=== PATIENT | female | born 2005 | race Caucasian/White ===

== ENCOUNTER 2023-05-22 20:41 | Emergency (ER) | payer OTHER, MEDICAID, SELFPAY ==
[2023-05-22 20:48] VITALS: BP 154/99; PULSE 72; RESP 17; TEMP 36.6; O2SAT 95; BMI 31.6
[2023-05-22] MEDS: methylPREDNISolone sod succ 125 mg/2 mL INJ IVP (20:51)
[2023-05-22] MEDS: famotidine 20 mg/2 mL INJ 40 MG IVP (20:52)
[2023-05-22] MEDS: diphenhydrAMINE 50 mg/mL SDV 1mL IVP (20:52)
--- NOTE | 2023-05-22 21:00 | W.ED.ALLEREA ---
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 States this happened 45 minutes ago states that her whole body feels like that its itchy in nature. She has no shortness of breath denies any previous allergic reactions denies any worsening improving factors. Associated symptoms: Deny abdominal pain, nausea or vomiting Review of Systems Const: Denies: fever(s), chills, body aches or change in appetite ENMT: Denies: throat pain or dental pain Card: Denies: chest pain Resp: Denies: dyspnea GI: Denies: abdominal pain, nausea, vomiting or diarrhea Musc: Denies: neck pain or back pain Skin/Breast: Reports: rash and pruritus Neuro: Denies: headache(s) All/Imm: Reports: urticaria Physical Exam Const: COMMON NORMALS: patient oriented x3 HENMT: COMMON NORMALS: normocephalic and atraumatic HEAD & SCALP: normocephalic and atraumatic Neck/C-Spine: COMMON NORMALS: full ROM and supple Chest: COMMONS NORMALS: normal inspection of the chest Resp: COMMON NORMALS: normal respiratory effort Cardio: COMMON NORMALS: regular rate, regular rhythm and No murmurs present (Cardio) RATE: regular rate RHYTHM: regular rhythm Extremity: COMMON NORMALS: full ROM Neuro: COMMON NORMALS: patient oriented x3, moves all extremities and no focal motor deficits Psych: COMMON NORMALS: mental status grossly normal, Normal thought process present and cooperative THOUGHT PROCESS: Normal thought process present Skin: COMMON NORMALS: no wounds NARRATIVE SKIN EXAM: Circular rash to back and arms Course Vital Signs: Vital signs: Vital Signs Temperature 98 F 05/22/23 20:48 Pulse Rate 104 H 05/22/23 21:03 Respiratory Rate 15 05/22/23 21:03 Blood Pressure 134/98 05/22/23 21:03 Pulse Oximetry 100 05/22/23 21:03 Oxygen Delivery Me thod Room Air 05/22/23 21:03 MDM - Allergic Reaction Medical Decision Making Patient presents here with urticarial rash likely from a allergic reaction she is to follow-up with PCP patient's symptoms have improved greatly here after Benadryl Pepcid and Solu-Medrol we will place her on 5 days of prednisone she is to return if worsening she understands agrees to plan. Medical Records I reviewed the patient's medical records. No radiology studies performed this visit Discharge Plan Discharge Patient Disposition: Home Clinical Impression: Allergic reaction Qualifiers: Encounter type: initial encounter Qualified Code(s): T78.40XA - Allergy, unspecified, initial encounter Prescriptions: New prednisone 50 mg tablet 50 mg PO DAILY Qty: 5 0RF Discharge Orders: Discharge ED (Routine); Ordered 05/22/23 Ordered By: Lilian Cruz Discharge Diet: Advance as tolerated Discharge Activity: Resume usual activity Patient Instructions: General Allergic Reaction (ED) Coding Level of Care Code ED Granulator Operator for Adrián Pardo
[2023-05-22 21:03] VITALS: BP 134/98; PULSE 104; RESP 15; O2SAT 100
[2023-05-22 22:19] VITALS: BP 134/98; PULSE 104; RESP 15; O2SAT 100
== END 2023-05-22 22:20 | disposition home or self-care (01) ==
PROVIDERS: Emergency Provider Emergency Medicine
DX: T78.49XA Other allergy, initial encounter (principal); X58.XXXA Exposure to other specified factors, initial encounter; Y99.0 Civilian activity done for income or pay
CPT/HCPCS: 96374; 96375; 99284; J1200; J2930; J3490

== ENCOUNTER → 2023-07-05 10:00 | Outpatient (BNVA) | payer BC, MEDICAID, SELFPAY | PROVIDERS: Visit Provider Obstetrics & Gynecology | DX: Z00.00 Encounter for general adult medical examination without abnormal findings (principal) | CPT/HCPCS: 84146; 84443; 85025 ==

== ENCOUNTER 2023-07-09 10:25 | Emergency (ER) | payer BC, MEDICAID, SELFPAY ==
[2023-07-09 10:32] VITALS: BP 143/87; PULSE 72; RESP 12; TEMP 36.6; O2SAT 98; BMI 31.6
--- NOTE | 2023-07-09 10:37 | XRR_ITS ---
PROCEDURE INFORMATION: Exam: XR Left Elbow Exam date and time: 07/09/2023 10:38 AM Age: 17 years old Clinical indication: Injury or trauma; Fall; Blunt trauma (contusions or hematomas); Elbow; Left TECHNIQUE: Imaging protocol: Radiologic exam of the left elbow. Views: 3 or more views. COMPARISON: No relevant prior studies available. FINDINGS: Bones/joints: There is an apparent lucency along the posterior cortex of radial head, seen only in oblique radiograph. Soft tissues: Normal. No significant joint effusion. XR/XR elbow LT min 3V* [id number] IMPRESSION: Apparent cortical lucency along the posterior cortex of radial head seen only in oblique radiograph, likely artifactual. There is no significant joint effusion identified. Follow-up radiographs recommended. Follow-up with CT scan as clinically indicated.
--- NOTE | 2023-07-09 11:08 | W.ED.EXTPRO ---
HPI - Extremity Problem General: Chief complaint: Extremity Injury, Upper Stated complaint: left arm pain, fall Time Seen by Provider: 07/09/23 10:28 Source: patient Mode of arrival: ambulatory History of Present Illness: 17-year-old female presents emergency room after a fall last night when she was leaving work she has an abrasion on her left elbow she has difficulty with flexion extension since then. No other injuries at the time. MD Complaint: joint pain Onset (ago): hour(s) Pain Consistency: constant Location: left and elbow Quality: sharp Radiation: none Relieving factors: immobilization Exacerbating factors: range of motion and palpation Associated symptoms: Deny arthralgias, chest pain, fever(s), myalgias, rash or short of breath Review of Systems Const: Denies: fever(s) or chills Card: Denies: chest pain Resp: Denies: dyspnea GI: Denies: abdominal pain : Denies: dysuria, urinary frequency or urinary urgency Musc: Denies: neck pain or back pain Skin/Breast: Denies: rash PFSH ED PFSH: Family History Grandmother Heart disease paternal Hypertension maternal Thyroid disease maternal Diabetes maternal Grandfather Heart disease maternal Mother Hypertension Thyroid disease Diabetes Father Thyroid disease Physical Exam Const: COMMON NORMALS: no acute distress GENERAL APPEARANCE: cooperative and comfortable ORIENTATION/CONSCIOUSNESS: Yes awake, Yes oriented to person, Yes oriented to place and Yes oriented to time HENMT: COMMON NORMALS: normocephalic, atraumatic and hearing grossly normal bilaterally HEAD & SCALP: normocephalic and atraumatic Resp: COMMON NORMALS: normal respiratory effort, No retractions, No use of accessory muscles and clear to auscultation bilaterally AUSCULTATION: clear to auscultation bilaterally Cardio: COMMON NORMALS: regular rate, regular rhythm and No murmurs present (Cardio) RATE: regular rate RHYTHM: regular rhythm GI: COMMON NORMALS: Soft to palpation and No hepatosplenomegaly present AUSCULTATION: Yes normoactive bowel sounds PALPATION: Yes Soft to palpation, No Tenderness to palpation present (GI), No Guarding due to palpation present (GI) and Yes No hepatosplenomegaly present Extremity: COMMON NORMALS: normal to inspection, capillary refill normal, no clubbing, cyanosis or edema, no calf tenderness and no pedal edema Neuro: SENSORIUM/ORIENTATION: Yes oriented to person, Yes oriented to place and Yes oriented to time Skin: COMMON NORMALS: no rashes or lesions noted GENERAL SKIN EXAM: no rashes or lesions noted Course Vital Signs: Vital signs: Vital Signs Temperature 97.9 F 07/09/23 11:16 Pulse Rate 72 07/09/23 11:16 Respiratory Rate 12 07/09/23 11:16 Blood Pressure 143/87 07/09/23 11:16 Pulse Oximetry 98 07/09/23 11:16 Oxygen Delivery Me thod Room Air 07/09/23 10:32 MDM - Extremity (Nontraumatic) Medical Decision Making Patient can tolerate some flexion extension of the elbow but as she nears terminal range of motion has more discomfort. X-ray questionable radial head fracture. Will immobilize and refer to Ortho for follow-up. Medical Records I reviewed the patient's medical records. Lab Data I reviewed the patient's lab results. Radiology Impressions Elbow X-Ray 07/09/23 10:37 IMPRESSION: Apparent cortical lucency along the posterior cortex of radial head seen only in oblique radiograph, likely artifactual. There is no significant joint effusion identified. Follow-up radiographs recommended. Follow-up with CT scan as clinically indicated. All radiology interpretation(s) finalized by discharge Discharge Plan Discharge Patient Disposition: Home Clinical Impression: Fracture of head of radius Condition: Stable Prescriptions: No Action No Known Home Medications Discharge Orders: Discharge ED (Routine); Ordered 07/09/23 Ordered By: Jason Walker Discharge Diet: Advance as tolerated and Usual diet Discharge Activity: Increase activity as tolerated Patient Instructions: Opioid Safety, Pain Management Activity Restrictions/Additional Instructions: Thank you for choosing [facility] for your healthcare needs today. Please realize this is an emergency room and that we are providing you with a medical screening exam and this may not be complete and all inclusive of all the testing and or work up that you may need to determine your ailment or severity of your illness. It is very important that you follow up as instructed or that you return to the Emergency Department should you have concerns or if your condition changes or worsens in any way. X-ray showed a questionable radial head fracture. Recommend that you keep your left arm in a sling until you follow-up with orthopedics social work case manager will make arrangements for follow-up with orthopedics Tylenol or ice as needed for discomfort Stand Alone Forms: Work/School Release Coding Level of Care Code ED Lens Gauger for Adrián Pardo
[2023-07-09 11:16] VITALS: BP 143/87; PULSE 72; RESP 12; TEMP 36.6; O2SAT 98
--- NOTE | 2023-07-12 11:29 | DCPLANNER ---
Message sent to Orthopedics for a follow up appointment for a possible radial head fracture
== END 2023-07-09 11:17 | disposition home or self-care (01) ==
PROVIDERS: Emergency Provider Family Medicine
DX: S52.122A Displaced fracture of head of left radius, initial encounter for closed fracture (principal); S50.312A Abrasion of left elbow, initial encounter; W19.XXXA Unspecified fall, initial encounter
CPT/HCPCS: 73080; 99281

== ENCOUNTER 2023-08-03 13:02 | Emergency (ER) | payer BC, MEDICAID, SELFPAY ==
[2023-08-03] VITALS (13 sets, daily range): BP systolic 113–129; BP diastolic 73–92; PULSE 67–86; RESP 16–18; TEMP 36.6; O2SAT 97–100; BMI 32.9
--- NOTE | 2023-08-03 13:07 | US_ITS ---
WS: [id number] EARLY OBSTETRICAL ULTRASOUND (<14 WEEKS). HISTORY: abd pain COMPARISON: None available. Single intrauterine gestational sac is identified. Cardiac activity at BPM. [place]-rump normal size ut erus. There is no intrauterine gestational sac. There is mild hyperplasia and thickening of the endom etrium measuring 1.3 cm. Both ovaries identified. RIGHT ovary measures 2.6 x 2.4 x 1.5 cm. LEFT ovary measures 2.8 x 2.0 x 1.9 cm. No adnexal mass. There is fullness in the LEFT adnexa contiguous with the superior ovary. There is a cystic and soft tissue component. This could be part of the ovary or very early ectopic pregnanc y or bowel. This needs to be further evaluated. The entire LEFT adnexa is much more reed than the R IGHT. There is no free fluid. IMPRESSION: 1. No intrauterine gestation. Normal endometrium. 2. There is increased fullness in the LEFT adnexa contiguous with the ovary. Fullness extends along the superior ovary and needs to be further evaluated for possible early ectopic . At this ti me there is no gestational sac and no pole identified within the uterus or extrauterine. Recomm end continued close serial beta hCG follow-up and possible ultrasound follow-up if pain continues and persist. 3. Notified Mitchell Alves at 08/03/2023 2:02 PM.
--- NOTE | 2023-08-03 13:49 | ED_ITS ---
HPI - Nausea/Vomiting/Diarrhea 2 General: Chief complaint: Nausea/Vomiting/Diarrhea Stated complaint: abd pain, + test Time Seen by Provider: 08/03/23 13:49 History of Present Illness: 17-year-old female comes in today with n ausea and vomiting x 3 days. Patient reports a positive test on the of this month. Patient endorses breast tenderness along with nausea and vomiting. Patient's last menstrual cycle was on June 29. Patient denies any surgeries. Patient reports no routine medications. Patient has a history of asthma. Patient denies alcohol, tobacco, marijuana, or drug use. Patient is 2 para 1 Associated nausea: Yes Associated symtoms: Reports nausea Review of Systems 2 General: Reports: 10 or more systems reviewed and unremarkable except in HPI and below GI: Reports: abdominal pain, nausea and vomiting : Denies: hematuria, vaginal bleeding, vaginal discharge or pelvic pain PFSH ED 2 PFSH: Family History Grandmother Heart disease paternal Hypertension maternal Thyroid disease maternal Diabetes maternal Grandfather Heart disease maternal Mother Hypertension Thyroid disease Diabetes Father Thyroid disease Physical Exam 2 Const: COMMON NORMALS: alert HENMT: COMMON NORMALS: normocephalic HEAD & SCALP: normocephalic Neck/C-Spine: COMMON NORMALS: full ROM Resp: COMMON NORMALS: normal respiratory effort and clear to auscultation bilaterally AUSCULTATION: clear to auscultation bilaterally Cardio: COMMON NORMALS: regular rate and regular rhythm RATE: regular rate RHYTHM: regular rhythm GI: COMMON NORMALS: Soft to palpation PALPATION: Yes Soft to palpation and Yes Tenderness to palpation present (GI) (Mild epigastric) Extremity: COMMON NORMALS: full ROM Neuro: SENSORIUM/ORIENTATION: Yes alert Skin: COMMON NORMALS: turgor normal GENERAL SKIN EXAM: turgor normal Course 2 ED course: 1405, discussed radiology report with Dr Roya Grimes, radiologist, she noted no IUP or ectopic, however some congestion in the left ovarian area that may be suggestive of a hemorrhagic cyst but could not definitively diagnose it at this time. Due to patient's test she recommended close follow-up and monitoring of hCG. Vital Signs: Vital signs: Vital Signs Temperature 97.9 F 08/03/23 13:13 Pulse Rate 86 08/03/23 13:13 Respiratory Rate 18 08/03/23 13:13 Blood Pressure 115/74 08/03/23 15:00 Pulse Oximetry 99 08/03/23 14:55 Oxygen Delivery Me thod Room Air 08/03/23 13:13 MDM - Nausea/Vomiting/Diarrhea Medical Decision Making 17-year-old female comes in today for complaints of epigastric pain with nausea and vomiting. Patient had a positive test on the . Patient was concerned due to not being able to hold fluids down for the last 3 days. On exam abdomen soft with some mild epigastric tenderness. Bowel sounds are present. Skin is warm and dry. Turgor is normal. Differential diagnosis includes hyperemesis gravidarum, gallbladder disease, dehydration, anxiety about health. CBC and CMP was unremarkable. Beta hCG was only 29. Ultrasound showed some left adnexal fullness which could be a hemorrhagic cyst versus an ectopic . Radiologist, Dr. Grimes, suggested repeat ultrasound and hCG level within 3 days for further evaluation and monitoring. Patient was given IV fluids with improvement of nausea and vomiting. Reviewed recommendations with patient who reported understanding of care plan and need for follow-up or return to the ER. Lab Data 08/03/23 14:24 Laboratory Results WBC 11.68 10^3/uL (4.5-13.0) 08/03/23 14:24 RBC 4.75 10^6/uL (3.85-5.65) 08/03/23 14:24 Hgb 12.90 g/dL (12.4-14.8) 08/03/23 14:24 Hct 39.4 % (36-47) 08/03/23 14:24 MCV 82.9 fl (85-98) L 08/03/23 14:24 MCH 27.2 pg (27-33) 08/03/23 14:24 MCHC 32.7 g/dL (30-55) 08/03/23 14:24 RDW 13.2 % (12.1-15.1) 08/03/23 14:24 Plt Count 362 10^3/cmm (157-399) 08/03/23 14:24 MPV 9.7 fL (7.4-10.4) 08/03/23 14:24 Neut % (Auto) 48.1 % 08/03/23 14:24 Lymph % (Auto) 40.6 % 08/03/23 14:24 [place] % (Auto) 8.4 % 08/03/23 14:24 Eos % (Auto) 2.3 % 08/03/23 14:24 Baso % (Auto) 0.3 % 08/03/23 14:24 Neut # (Auto) 5.61 10^3/uL (1.8-8.0) 08/03/23 14:24 Lymph # (Auto) 4.7 10^3/uL (1.5-6.5) 08/03/23 14:24 [place] # (Auto) 1.0 10^3/uL (0.2-0.9) H 08/03/23 14:24 Eos # (Auto) 0.3 10^3/uL (0.0-0.8) 08/03/23 14:24 Baso # (Auto) 0.0 10^3/uL (0.0-0.1) 08/03/23 14:24 Nucleated RBC % (auto) 0 % 08/03/23 14: Nucleated RBCs # 0.0 /100WBC 08/03/23 14:24 Ser , Semi-Qnt 29.21 mIU/mL 08/03/23 14:24 Urine Color Yellow (Yellow) 08/03/23 13:58 Urine Appearance Clear (CLEAR) 08/03/23 13:58 Urine pH 6 (5-7) 08/03/23 13:58 Ur Specific [place] 1.020 (1.005-1.030) 08/03/23 13:58 Urine Protein Neg (Negative) 08/03/23 13:58 Urine Glucose (UA) Norm (Normal) 08/03/23 13:58 Urine Ketones Negative (Negative) 08/03/23 13:58 Urine Blood Neg (Negative) 08/03/23 13:58 Urine Nitrate Negative (Negative) 08/03/23 13:58 Urine Bilirubin Neg (Negative) 08/03/23 13:58 Urine Urobilinogen Norm mg/dL (Negative) 08/03/23 13:58 Ur Leukocyte Esterase Negative (Negative) 08/03/23 13:58 All radiology interpretation(s) finalized by discharge Discharge Plan Discharge Patient Disposition: Home Clinical Impression: Early stage of , Abnormal obstetric ultrasound scan N&V (nausea and vomiting) Qualifiers: Vomiting type: unspecified Qualified Code(s): R11.2 - Nausea with vomiting, unspecified Condition: Stable Prescriptions: No Action albuterol sulfate 90 mcg/actuation HFA aerosol inhaler 2 puff INHALATION Q4H Discharge Orders: Discharge ED (Routine); Ordered 08/03/23 Ordered By: Boogie Alves Discharge Diet: Advance as tolerated Discharge Activity: Increase activity as tolerated Patient Instructions: Nausea and Vomiting in (ED) Activity Restrictions/Additional Instructions: Follow-up with obstetric office for follow-up and further evaluation of abnormality on ultrasound and low hCG level. It is strongly recommended you have a repeat blood test in 3 days and repeat ultrasound. If your INSOLE AND OUTSOLE PREPARER is unable to perform this by Monday you should return to the ER for repeat lab work and ultrasound. You should also return to the ER if you start running a fever greater than 100.4, have excessive bleeding greater than 1 pad an hour, or severe lower abdominal pain. Coding Level of Care Code ED Concrete Building Assembler for Adrián Pardo
[2023-08-03] MEDS: lactated ringers 1,000 ML 999 ML IV (14:27)
[2023-08-03 14:41] LABS: Add Urine Microscopic? NO; Charge for UA Resulting for Rev
[2023-08-03 14:45] LABS: Basophils % 0.3 %; Eosinophils # 0.3 10^3/uL (0.0-0.8); Eosinophils % 2.3 %; Hematocrit 39.4 % (36-47); Lymphocytes # 4.7 10^3/uL (1.5-6.5); Lymphocytes % 40.6 %; Mean Corpuscular HGB Conc 32.7 g/dL (30-55); Mean Corpuscular Hemoglobin 27.2 pg (27-33); Mean Corpuscular Volume 82.9 fl (85-98); Mean Platelet Volume 9.7 fL (7.4-10.4); Monocytes % 8.4 %; Neutrophils # 5.61 10^3/uL (1.8-8.0); Neutrophils % 48.1 %; Nucleated Red Blood Cells % 0 %; Platelet Count 362 10^3/cmm (157-399); Red Blood Count 4.75 10^6/uL (3.85-5.65); Red Cell Distribution Width 13.2 % (12.1-15.1); White Blood Count 11.68 10^3/uL (4.5-13.0)
[2023-08-03 14:50] LABS: Bilirubin Urine Neg (Negative); Blood Urine Neg (Negative); Glucose Urine UA Norm (Normal); Ketones Urine Negative (Negative); Leukocyte Esterase Urine Negative (Negative); Nitrate Urine Negative (Negative); Protein Urine Neg (Negative); Urine Appearance Clear (CLEAR); Urine Color Yellow (Yellow); Urobilinogen Urine Norm (Negative); pH Urine 6 (5-7)
[2023-08-03 15:16] LABS: HCG Quantitative 29.21 mIU/mL
== END 2023-08-03 15:37 | disposition home or self-care (01) ==
PROVIDERS: Emergency Medicine; Emergency Provider Nurse Practitioner Family
DX: O26.891 Other specified pregnancy related conditions, first trimester (principal); Z3A.00 Weeks of gestation of pregnancy not specified; R11.2 Nausea with vomiting, unspecified; O28.3 Abnormal ultrasonic finding on antenatal screening of mother
CPT/HCPCS: 36415; 76801; 76817; 81003; 84702; 85025; 86850; 86900; 96360; 99284; J7120

== ENCOUNTER 2023-08-25 17:29 | Emergency (ER) | payer BC, MEDICAID, SELFPAY ==
[2023-08-25 17:30] VITALS: BP 123/86; PULSE 116; RESP 15; TEMP 36.8; O2SAT 96
--- NOTE | 2023-08-25 17:54 | W.ED.NAVMDI ---
Documented by User: AL Edgar 08/25/23 19:49 HPI - Nausea/Vomiting/Diarrhea General: Chief complaint: Nausea/Vomiting/Diarrhea Stated complaint: chest pain Time Seen by Provider: 08/25/23 17:37 Source: patient Mode of arrival: ambulatory Limitations: no limitations History of Present Illness: Patient is a 17-year-old female presents to the emergency department complaining of nausea/vomiting for the past 2 days. Patient states she woke Monday with sudden onset of subjective fevers, body aches, chills, chest pain, productive cough, and a migraine headache. She denies being around anyone sick. She denies any pertinent medical history. Patient states worsening bothering her right now as her migraine, and her chest pain is only present when she coughs. Otherwise she denies any other symptoms. MD elicited complaint: nausea and vomiting Onset (ago): day(s) (2) Associated nausea: Yes Associated abdominal pain: No Associated symtoms: Reports chest pain, headache(s) and nausea; Denies change in vision, dizziness, dysuria, fatigue or palpitations Review of Systems General: Reports: 10 or more systems reviewed and unremarkable except in HPI and below Const: Reports: fever(s), chills and body aches; Denies: fatigue Eyes: Denies: change in vision ENMT: Denies: throat pain, ear or mastoid pain or nasal discharge Card: Reports: chest pain; Denies: palpitations, swelling of feet/ankles or lightheadedness Resp: Reports: productive cough; Denies: dyspnea or wheezing GI: Reports: nausea and vomiting; Denies: abdominal pain, diarrhea or constipation : Denies: flank pain, difficulty voiding, dysuria, urinary frequency, urinary urgency or hematuria Musc: Denies: neck pain, back pain or joint pain Skin/Breast: Denies: rash Neuro: Reports: headache(s); Denies: numbness in extremities, weakness in extremities or dizziness PFSH ED PFSH: Family History Grandmother Heart disease paternal Hypertension maternal Thyroid disease maternal Diabetes maternal Grandfather Heart disease maternal Mother Hypertension Thyroid disease Diabetes Father Thyroid disease Physical Exam Const: COMMON NORMALS: no acute distress, average body habitus, patient oriented x3, no limitations, healthy appearing and alert GENERAL APPEARANCE: cooperative HENMT: COMMON NORMALS: normocephalic, atraumatic, hearing grossly normal bilaterally, external ears normal, EAC's normal, TM's normal bilaterally, Normal external nose present, Normal nasal mucous membranes and turbinates present, moist oral mucous membranes and oropharynx normal HEAD & SCALP: normocephalic and atraumatic NOSE: Normal external nose present and Normal nasal mucous membranes and turbinates present EXTERNAL EAR: Yes external ears normal EXTERNAL AUDITORY CANAL: EAC's normal TYMPANIC MEMBRANE: TM's normal bilaterally Eye: COMMON NORMALS: EOMs intact bilaterally, conjunctivae normal and no scleral icterus CONJUNCTIVA: Yes conjunctivae normal Neck/C-Spine: COMMON NORMALS: full ROM, no lymphadenopathy and no JVD Resp: COMMON NORMALS: normal respiratory effort, No retractions, No use of accessory muscles and clear to auscultation bilaterally AUSCULTATION: clear to auscultation bilaterally Cardio: COMMON NORMALS: no JVD, regular rhythm, S1 normal heart sound present, S2 normal heart sound present, No gallops present (Cardio), No clicks present (Cardio), No murmurs present (Cardio) and Peripheral pulses 2+ throughout RATE: tachycardic RHYTHM: regular rhythm HEART SOUNDS: S1 normal heart sound present and S2 normal heart sound present PERIPHERAL PULSES: Peripheral pulses 2+ throughout GI: COMMON NORMALS: Normal to inspection, nondistended, normoactive bowel sounds present, Soft to palpation, non-tender and No hepatosplenomegaly present PALPATION: Yes Soft to palpation and Yes No hepatosplenomegaly present Extremity: COMMON NORMALS: normal to inspection, capillary refill normal and no clubbing, cyanosis or edema Neuro: COMMON NORMALS: patient oriented x3, moves all extremities, no focal motor deficits and no sensory deficits noted SENSORIUM/ORIENTATION: Yes alert Psych: COMMON NORMALS: mental status grossly normal Skin: COMMON NORMALS: no rashes or lesions noted GENERAL SKIN EXAM: no rashes or lesions noted Course Vital Signs: Vital signs: Vital Signs Temperature 98.2 F 08/25/23 17:30 Pulse Rate 91 08/25/23 19:55 Respiratory Rate 16 08/25/23 19:55 Blood Pressure 123/86 08/25/23 17:30 Pulse Oximetry 94 08/25/23 19:55 Oxygen Delivery Me thod Room Air 08/25/23 17:30 MDM - Nausea/Vomiting/Diarrhea Medical Decision Making Patient was seen and evaluated in the emergency department today for 2 days of flulike symptoms and a migraine headache. Patient tachycardic on arrival otherwise normal vitals. EKG was ordered which showed no acute ST segment changes, this patient was stating she was having some chest pain. On examination, patient said the pain was mainly only from coughing. Heart and lung examination normal. I started her on some IV fluids along with a migraine cocktail. Flu swab positive for influenza A. Upon reexamination, patient states she was feeling better and would like something to take home for her nausea and headaches. Explained her reasons to return and to enact contagion precautions. Will send her home with Zofran and Toradol to take as needed. Patient agrees with this plan. Lab Data Laboratory Results HCG, Qual Negative (Negative) 08/25/23 19:23 Urine Color Yellow (Yellow) 08/25/23 19:23 Urine Appearance Clear (CLEAR) 08/25/23 19:23 Urine pH 5 (5-7) 08/25/23 19:23 Ur Specific [place] 1.025 (1.005-1.030) 08/25/23 19:23 Urine Protein 1+ (Negative) H 08/25/23 19:23 Urine Glucose (UA) Norm (Normal) 08/25/23 19:23 Urine Ketones 1+ (Negative) H 08/25/23 19:23 Urine Blood 2+ (Negative) H 08/25/23 19:23 Urine Nitrate Negative (Negative) 08/25/23 19:23 Urine Bilirubin Neg (Negative) 08/25/23 19:23 Urine Urobilinogen Neg mg/dL (Negative) 08/25/23 19:23 Ur Leukocyte Esterase Negative (Negative) 08/25/23 19:23 Urine RBC 0-4 /hpf (0-2) H 08/25/23 19:23 Urine WBC 5-10 /hpf (0-5) H 08/25/23 19:23 Ur Squamous Epith Cells 0-4 /hpf (0-5) H 08/25/23 19:23 Amorphous Sediment Not Reportable 08/25/23 19:23 Urine Bacteria 1+ /hpf (NONE) H 08/25/23 19:23 Urine Mucus 1+ /hpf 08/25/23 19:23 Influenza Type A Ag positive (Negative) H 08/25/23 18:19 Influenza Type B Ag negative (Negative) 08/25/23 18:19 SARS-CoV-2 Ag (Rapid) negative (Negative) 08/25/23 18:19 No radiology studies performed this visit EKG Data EKG 1: I personally reviewed and interpreted this EKG as follows: EKG interpretation date: 08/25/23 EKG interpretation time: 17:37 Prior EKG tracings: available for review Interpretation: 1737: ST. Rate 108. Normal axis. Normal intervals. No acute ST segment changes. No previous for comparison. Discharge Plan Discharge Patient Disposition: Home Clinical Impression: Influenza A Migraine Qualifiers: Migraine type: unspecified Status migrainosus presence: without status migrainosus Intractability: intractable Qualified Code(s): G43.919 - Migraine, unspecified, intractable, without status migrainosus Condition: Stable Prescriptions: New ondansetron HCl 4 mg tablet 4 mg PO Q8H Qty: 30 0RF ketorolac 10 mg tablet 10 mg PO Q8H PRN (Reason: pain) Qty: 30 0RF No Action albuterol sulfate 90 mcg/actuation HFA aerosol inhaler 2 puff INHALATION Q4H Discharge Orders: Discharge ED (Routine); Ordered 08/25/23 Ordered By: Kobi Harris Discharge Diet: Usual diet Discharge Activity: Increase activity as tolerated Patient Instructions: Migraine Headache (ED), Influenza (ED) Activity Restrictions/Additional Instructions: Take Zofran as needed. Toradol as needed. Plenty fluids. Contagion precautions. Follow-up with primary care provider. Return if you develop any new or worsening symptoms. Coding Level of Care Code ED Finished Garment Inspector for Chg Fwd Documented by User: Jason Walker DO 08/28/23 06:01 HPI - Nausea/Vomiting/Diarrhea General: Chief complaint: Nausea/Vomiting/Diarrhea Stated complaint: chest pain Time Seen by Provider: 08/25/23 17:37 [facility] ED PFSH: Family History Grandmother Heart disease paternal Hypertension maternal Thyroid disease maternal Diabetes maternal Grandfather Heart disease maternal Mother Hypertension Thyroid disease Diabetes Father Thyroid disease Course Vital Signs: Vital signs: Vital Signs Temperature 98.2 F 08/25/23 17:30 Pulse Rate 91 08/25/23 19:55 Respiratory Rate 16 08/25/23 19:55 Blood Pressure 123/86 08/25/23 17:30 Pulse Oximetry 94 08/25/23 19:55 Oxygen Delivery Me thod Room Air 08/25/23 17:30 MDM - Nausea/Vomiting/Diarrhea Medical Decision Making Patient was seen and evaluated in the emergency department today for 2 days of flulike symptoms and a migraine headache. Patient tachycardic on arrival otherwise normal vitals. EKG was ordered which showed no acute ST segment changes, this patient was stating she was having some chest pain. On examination, patient said the pain was mainly only from coughing. Heart and lung examination normal. I started her on some IV fluids along with a migraine cocktail. Flu swab positive for influenza A. Upon reexamination, patient states she was feeling better and would like something to take home for her nausea and headaches. Explained her reasons to return and to enact contagion precautions. Will send her home with Zofran and Toradol to take as needed. Patient agrees with this plan. Chart reviewed Lab Data Laboratory Results HCG, Qual Negative (Negative) 08/25/23 19:23 Urine Color Yellow (Yellow) 08/25/23 19:23 Urine Appearance Clear (CLEAR) 08/25/23 19:23 Urine pH 5 (5-7) 08/25/23 19:23 Ur Specific [place] 1.025 (1.005-1.030) 08/25/23 19:23 Urine Protein 1+ (Negative) H 08/25/23 19:23 Urine Glucose (UA) Norm (Normal) 08/25/23 19:23 Urine Ketones 1+ (Negative) H 08/25/23 19:23 Urine Blood 2+ (Negative) H 08/25/23 19:23 Urine Nitrate Negative (Negative) 08/25/23 19:23 Urine Bilirubin Neg (Negative) 08/25/23 19:23 Urine Urobilinogen Neg mg/dL (Negative) 08/25/23 19:23 Ur Leukocyte Esterase Negative (Negative) 08/25/23 19:23 Urine RBC 0-4 /hpf (0-2) H 08/25/23 19:23 Urine WBC 5-10 /hpf (0-5) H 08/25/23 19:23 Ur Squamous Epith Cells 0-4 /hpf (0-5) H 08/25/23 19:23 Amorphous Sediment Not Reportable 08/25/23 19:23 Urine Bacteria 1+ /hpf (NONE) H 08/25/23 19:23 Urine Mucus 1+ /hpf 08/25/23 19:23 Influenza Type A Ag positive (Negative) H 08/25/23 18:19 Influenza Type B Ag negative (Negative) 08/25/23 18:19 SARS-CoV-2 Ag (Rapid) negative (Negative) 08/25/23 18:19 Discharge Plan Discharge Patient Disposition: Home Clinical Impression: Influenza A Migraine Qualifiers: Migraine type: unspecified Status migrainosus presence: without status migrainosus Intractability: intractable Qualified Code(s): G43.919 - Migraine, unspecified, intractable, without status migrainosus Condition: Stable Prescriptions: New ondansetron HCl 4 mg tablet 4 mg PO Q8H Qty: 30 0RF ketorolac 10 mg tablet 10 mg PO Q8H PRN (Reason: pain) Qty: 30 0RF No Action albuterol sulfate 90 mcg/actuation HFA aerosol inhaler 2 puff INHALATION Q4H Discharge Orders: Discharge ED (Routine); Ordered 08/25/23 Ordered By: Kobi Harris Discharge Diet: Usual diet Discharge Activity: Increase activity as tolerated Patient Instructions: Migraine Headache (ED), Influenza (ED) Activity Restrictions/Additional Instructions: Take Zofran as needed. Toradol as needed. Plenty fluids. Contagion precautions. Follow-up with primary care provider. Return if you develop any new or worsening symptoms. Coding Level of Care Code ED Finished Garment Inspector for Adrián Pardo
[2023-08-25] MEDS: sodium chloride 0.9% 1,000 ML 999 ML IV (18:22)
[2023-08-25] MEDS: diphenhydrAMINE 50 mg/mL SDV 1mL IVP (18:23)
[2023-08-25] MEDS: ondansetron 2 mg/ML SDV 2 mL 4 MG IVP (18:23)
[2023-08-25] MEDS: ketorolac 60 mg/2 mL INJ 10 MG IVP (18:23)
[2023-08-25] MEDS: dexamethasone 10 mg/mL INJ 8 MG IVP (18:23)
[2023-08-25 18:28] LABS: Influenza A by IFA positive (Negative); Influenza B by IFA negative (Negative)
[2023-08-25 18:41] LABS: SARS Covid-2 Antigen negative (Negative)
[2023-08-25 19:32] LABS: HCG Qualitative Urine. Negative (Negative)
[2023-08-25 19:55] VITALS: PULSE 91; RESP 16; O2SAT 94
[2023-08-25 20:37] LABS: Add Urine Microscopic? YES; Bilirubin Urine Neg (Negative); Blood Urine 2+ (Negative); Glucose Urine UA Norm (Normal); Ketones Urine 1+ (Negative); Leukocyte Esterase Urine Negative (Negative); Nitrate Urine Negative (Negative); Protein Urine 1+ (Negative); Specific Gravity, Urine 1.025 (1.005-1.030); Urine Appearance Clear (CLEAR); Urine Color Yellow (Yellow); Urobilinogen Urine Neg (Negative); pH Urine 5 (5-7)
[2023-08-25 20:38] LABS: Bacteria Urine 1+ /hpf; Mucus Urine 1+ /hpf; RBC Urine 0-4 /hpf (0-2); Squamous Epithelial Cell Urine 0-4 /hpf (0-5)
== END 2023-08-25 20:06 | disposition home or self-care (01) ==
PROVIDERS: Emergency Provider Physician Assistant
DX: J10.1 Influenza due to other identified influenza virus with other respiratory manifestations (principal); G43.919 Migraine, unspecified, intractable, without status migrainosus; Z11.52 Encounter for screening for COVID-19
CPT/HCPCS: 81001; 81025; 87426; 87804; 96361; 96374; 96375; 99284; J1100; J1200; J1885; J2405; J7030

== ENCOUNTER 2023-09-25 11:23 | Emergency (ER) | payer BC, MEDICAID, SELFPAY ==
[2023-09-25 11:24] VITALS: BP 135/71; PULSE 89; RESP 16; TEMP 37.1; O2SAT 98; BMI 32.5
--- NOTE | 2023-09-25 11:37 | ED_ITS ---
HPI - Abdominal Pain 2 General: Chief Complaint: Abdominal Pain Stated Complaint: female problems Time Seen by Provider: 09/25/23 11:29 Source: patient Mode of arrival: ambulatory Limitations: no limitations History of Present Illness: 17-year-old female states that she was t old in July that she did have a miscarriage she states she never followed up with her OB had never had her quantitative levels rechecked she states she has been having abdominal pain since then she has not had her period states that over the last months she has had intermittent abdominal pain she denies any pain currently she denies any vaginal bleeding but states she went to make sure that her quantitative levels went back down to 0 Associated Symptoms: Denies chills, diarrhea, fever(s), nausea and vomiting Related Data: Date of Last Menstrual Period: 08/17/23 Review of Systems 2 Const: Denies: fever(s), chills, body aches or change in appetite ENMT: Denies: throat pain or dental pain Card: Denies: chest pain Resp: Denies: dyspnea GI: Reports: abdominal pain; Denies: nausea, vomiting or diarrhea Musc: Denies: neck pain or back pain Skin/Breast: Denies: rash Neuro: Denies: headache(s) PFSH ED 2 PFSH: Family History Grandmother Heart disease paternal Hypertension maternal Thyroid disease maternal Diabetes maternal Grandfather Heart disease maternal Mother Hypertension Thyroid disease Diabetes Father Thyroid disease Female Reproductive History: Date of last menstrual period: 08/17/23 Physical Exam 2 Const: COMMON NORMALS: no acute distress, patient oriented x3 and healthy appearing HENMT: COMMON NORMALS: normocephalic and atraumatic HEAD & SCALP: n ormocephalic and atraumatic Eye: COMMON NORMALS: conjunctivae normal CONJUNCTIVA: Yes conjunctivae normal Neck/C-Spine: COMMON NORMALS: full ROM and supple Chest: COMMONS NORMALS: normal inspection of the chest Resp: COMMON NORMALS: normal respiratory effort, No retractions, No use of accessory muscles and clear to auscultation bilaterally AUSCULTATION: clear to auscultation bilaterally Cardio: COMMON NORMALS: regular rate, regular rhythm and No murmurs present (Cardio) RATE: regular rate RHYTHM: regular rhythm GI: COMMON NORMALS: Normal to inspection, nondistended, normoactive bowel sounds present, Soft to palpation, non-tender and no masses PALPATION: Yes Soft to palpation Extremity: COMMON NORMALS: normal to inspection and full ROM Neuro: COMMON NORMALS: patient oriented x3, moves all extremities and no focal motor deficits Psych: COMMON NORMALS: mental status grossly normal, Normal thought process present and cooperative THOUGHT PROCESS: Normal thought process present Skin: COMMON NORMALS: no rashes or lesions noted and no wounds GENERAL SKIN EXAM: no rashes or lesions noted Course 2 Vital Signs: Vital signs: Vital Signs Temperature 98.8 F 09/25/23 11:24 Pulse Rate 75 09/25/23 11:55 Respiratory Rate 16 09/25/23 11:24 Blood Pressure 126/85 09/25/23 11:55 Pulse Oximetry 98 09/25/23 12:36 Oxygen Delivery Me thod Room Air 09/25/23 12:36 MDM - Abdominal Pain Medical Decision Making Patient presents with abdominal pain she is in no pain currently exam is benign she is concerned about her quant level it is negative she is stable for discharge she is follow-up with PCP return if worsening she understands agrees to plan Medical Records I reviewed the patient's medical records. Lab Data I reviewed the patient's lab results. 09/25/23 11:50 09/25/23 11:50 Labs/Radiology: Laboratory Results WBC 9.63 10^3/uL (4.5-13.0) 09/25/23 11:50 RBC 4.75 10^6/uL (3.85-5.65) 09/25/23 11:50 Hgb 12.80 g/dL (12.4-14.8) 09/25/23 11:50 Hct 39.5 % (36-47) 09/25/23 11:50 MCV 83.2 fl (85-98) L 09/25/23 11:50 MCH 26.9 pg (27-33) L 09/25/23 11:50 MCHC 32.4 g/dL (30-55) 09/25/23 11:50 RDW 13.2 % (12.1-15.1) 09/25/23 11:50 Plt Count 362 10^3/cmm (157-399) 09/25/23 11:50 MPV 9.8 fL (7.4-10.4) 09/25/23 11:50 Neut % (Auto) 41.0 % 09/25/23 11:50 Lymph % (Auto) 49.8 % 09/25/23 11:50 [place] % (Auto) 6.3 % 09/25/23 11:50 Eos % (Auto) 2.2 % 09/25/23 11:50 Baso % (Auto) 0.4 % 09/25/23 11:50 Neut # (Auto) 3.94 10^3/uL (1.8-8.0) 09/25/23 11:50 Lymph # (Auto) 4.8 10^3/uL (1.5-6.5) 09/25/23 11:50 [place] # (Auto) 0.6 10^3/uL (0.2-0.9) 09/25/23 11:50 Eos # (Auto) 0.2 10^3/uL (0.0-0.8) 09/25/23 11:50 Baso # (Auto) 0.0 10^3/uL (0.0-0.1) 09/25/23 11:50 Nucleated RBC % (auto) 0 % 09/25/23 11:50 Nucleated RBCs # 0.0 /100WBC 09/25/23 11:50 Sodium 137 mmol/L (136-145) 09/25/23 11:50 Potassium 3.7 mmol/L (3.5-5.1) 09/25/23 11:50 Chloride 107 mmol/L (98-107) 09/25/23 11:50 Carbon Dioxide 20 mmol/L (22-29) L 09/25/23 11:50 Anion Gap 13.7 (5-19) 09/25/23 11:50 BUN 9 mg/dL (6-20) 09/25/23 11:50 Creatinine 0.5 mg/dL (0.5-0.9) 09/25/23 11:50 GFR Calculation 158.9 mL/min (90-130) H 09/25/23 11:50 Glucose 142 mg/dL (65-115) H 09/25/23 11:50 Calculated Osmolality 285 mOsm/kg (285-295) 09/25/23 11:50 Calcium 9.8 mg/dL (8.5-10.5) 09/25/23 11:50 Total Bilirubin 0.3 mg/dL (0.15-1.2) 09/25/23 11:50 AST 14 U/L (0-32) 09/25/23 11:50 ALT 14 U/L (0-33) 09/25/23 11:50 Alkaline Phosphatase 94 U/L (35-105) 09/25/23 11:50 Total Protein 6.8 g/dL (6.6-8.7) 09/25/23 11:50 Albumin 3.9 g/dL (3.5-5.2) 09/25/23 11:50 Globulin 2.9 g/dL (1.3-4.6) 09/25/23 11:50 Ser , Semi-Qnt 1.00 mIU/mL 09/25/23 11:50 No radiology studies performed this visit Discharge Plan Discharge Patient Disposition: Home Clinical Impression: Abdominal pain Condition: Stable Prescriptions: No Action albuterol sulfate 90 mcg/actuation HFA aerosol inhaler 2 puff INHALATION Q4H PRN (Reason: Shortness Of Breath) fluticasone propion-salmeterol 113-14 mcg/actuation aerosol powdr breath activated 1 inh INHALATION BID Discharge Orders: Discharge ED (Routine); Ordered 09/25/23 Ordered By: Lilian Cruz Discharge Diet: Advance as tolerated Discharge Activity: Resume usual activity Patient Instructions: Abdominal Pain (ED) Coding Level of Care Code ED Wet Pan Mixer for Adrián Pardo
--- NOTE | 2023-09-25 11:53 | PC.PHAR ---
PT STATES SHE ONLY HAS 2 INHALERS. NO OTHER MEDICATIONS AT THIS TIME. 09/25/23
[2023-09-25 11:55] VITALS: BP 126/85; PULSE 75; O2SAT 98
[2023-09-25 11:59] LABS: Basophils % 0.4 %; Eosinophils # 0.2 10^3/uL (0.0-0.8); Eosinophils % 2.2 %; Hematocrit 39.5 % (36-47); Lymphocytes # 4.8 10^3/uL (1.5-6.5); Lymphocytes % 49.8 %; Mean Corpuscular HGB Conc 32.4 g/dL (30-55); Mean Corpuscular Hemoglobin 26.9 pg (27-33); Mean Corpuscular Volume 83.2 fl (85-98); Mean Platelet Volume 9.8 fL (7.4-10.4); Monocytes # 0.6 10^3/uL (0.2-0.9); Monocytes % 6.3 %; Neutrophils # 3.94 10^3/uL (1.8-8.0); Nucleated Red Blood Cells % 0 %; Platelet Count 362 10^3/cmm (157-399); Red Blood Count 4.75 10^6/uL (3.85-5.65); Red Cell Distribution Width 13.2 % (12.1-15.1); White Blood Count 9.63 10^3/uL (4.5-13.0)
[2023-09-25 12:28] LABS: Alanine Aminotransferase 14 U/L (0-33); Albumin Level 3.9 g/dL (3.5-5.2); Alkaline Phosphatase 94 U/L (35-105); Anion Gap 13.7 (5-19); Aspartate Amino Transferase 14 U/L (0-32); Blood Urea Nitrogen 9 mg/dL (6-20); Calcium 9.8 mg/dL (8.5-10.5); Carbon Dioxide 20 mmol/L (22-29); Chloride 107 mmol/L (98-107); Creatinine Clr Calc Pharmacy 192.2529; Globulin 2.9 g/dL (1.3-4.6); Glomerular Filtration Rate 158.9 mL/min (90-130); Glucose 142 mg/dL (65-115); Osmolality Calculated 285 mOsm/kg (285-295); Potassium 3.7 mmol/L (3.5-5.1); Sodium 137 mmol/L (136-145); Total Bilirubin 0.3 mg/dL (0.15-1.2); Total Protein 6.8 g/dL (6.6-8.7)
[2023-09-25 12:36] VITALS: O2SAT 98
[2023-09-25 12:43] VITALS: BP 121/87; PULSE 71; O2SAT 95
== END 2023-09-25 12:44 | disposition home or self-care (01) ==
PROVIDERS: Emergency Provider Emergency Medicine
DX: R10.9 Unspecified abdominal pain (principal)
CPT/HCPCS: 80053; 84702; 85025; 99283

== ENCOUNTER 2024-07-15 11:45 | Emergency (ER) | payer SELFPAY ==
[2024-07-15 11:49] VITALS: BP 133/81; PULSE 82; RESP 17; TEMP 36.7; O2SAT 96; BMI 32.4
--- NOTE | 2024-07-15 12:20 | US_ITS ---
WS: [id number] EARLY OBSTETRICAL ULTRASOUND (<14 WEEKS). HISTORY: abdominal cramping COMPARISON: None available. Mildly thickened endometrium. Within the central endometrium is what appears to be a gestational sac measuring 1.1 x 1.1 x 1.1 cm. There is no pole or yolk sac identified. No adjacent subchorionic hemorrhage. Cervix is closed. No free fluid. Neither ovary is identified. US/US OB transvaginal [id number] IMPRESSION: 1. No intrauterine crown-rump length or yolk sac identified. 2. There is what appears to be developing gestational sac within age estimated at 5 weeks and 5 days. 3. Without confirming an intrauterine gestation ectopic is not exclu ded.
--- NOTE | 2024-07-15 12:21 | ED_ITS ---
HPI - Abdominal Pain 2 General: Chief Complaint: Abdominal Pain Stated Complaint: abd pain 7 weeks preg Time Seen by Provider: 07/15/24 12:13 Source: patient Mode of arrival: ambulatory Limitations: no limitations History of Present Illness: Patient is a 18-year-old female, A4, who presents to the emergency department complaining of lower mid abdominal cramping onset today. She states she is 7 weeks based off of last normal menstrual period. She notes that she has taken multiple home test that have been positive, most recently as this morning. She states that she has established appointment with OB on . She is not having any vaginal bleeding, feeling like she is going to pass out, chest pain, shortness of breath, or other concerns. The pain reported to be to bilateral lower quadrants into the pelvis, states it feels cramping. She notes that her first was a live , however since then she has had 4 first trimester spontaneous miscarriages. She has not underwent any testing as to why she has had so many. Only complaint at this time is the pain, reported to be mild. Vitals are stable. MD elicited complaint: abdominal pain Pertinent past history: other (Miscarriage x 4) Onset (ago): hour(s) Pain Consistency: constant Location: RLQ and LLQ Severity: mild Quality: cramping Radiation: none Exacerbating factors: nothing Relieving factors: nothing Context: other (7 weeks based off of last normal menstrual period) Associated Symptoms: Reports GI cramping; Denies bloating, change in stool character, chills, constipation, diarrhea, dysuria, fever(s), hematochezia, nausea and vomiting Related Data Date of Last Menstrual Period: 05/26/24 Home Medications Medication Instructions Recorded Confirmed No Known Home Medications 07/15/24 07/15/24 Allergies Allergy/AdvReac Type Severity Reaction Status Date / Time shellfish derived Allergy ALGY-Anaphy Verified 08/25/23 17:34 laxis Review of Systems 2 General: Reports: 10 or more systems reviewed and unremarkable except in HPI and below Const: Denies: fever(s), chills, change in appetite, change in weight or diaphoresis ENMT: Denies: throat pain or hoarseness Card: Denies: chest pain, palpitations or lightheadedness Resp: Denies: dyspnea, productive cough or wheezing GI: Reports: abdominal pain and GI cramping; Denies: nausea, vomiting, diarrhea, constipation, bloating, change in stool character or hematochezia : Denies: flank pain, difficulty voiding, dysuria, urinary frequency, urinary urgency or vaginal bleeding Musc: Denies: neck pain or back pain Skin/Breast: Denies: rash or new lesions Neuro: Denies: headache(s) or dizziness PFSH ED 2 PFSH: Family History Grandmother Heart disease paternal Hypertension maternal Thyroid disease maternal Diabetes maternal Grandfather Heart disease maternal Mother Hypertension Thyroid disease Diabetes Father Thyroid disease Female Reproductive History: Date of last menstrual period: 05/26/24 Physical Exam 2 Const: COMMON NORMALS: no acute distress, average body habitus, patient oriented x3, no limitations, healthy appearing, alert and well nourished G ENERAL APPEARANCE: cooperative and comfortable ORIENTATION/CONSCIOUSNESS: Yes awake OTHER: Nontoxic-appearing Eye: COMMON NORMALS: Equal, round and reactive pupils present, EOMs intact bilaterally, conjunctivae normal and normal visual gilman by confrontation C ONJUNCTIVA: Yes conjunctivae normal PUPIL: Yes Equal, round and reactive pupils present Neck/C-Spine: COMMON NORMALS: full ROM, supple, no meningeal signs and no JVD Resp: COMMON NORMALS: normal respiratory effort, No retractions, No use of accessory muscles and clear to auscultation bilaterally AUSCULTATION: clear to auscultation bilaterally, no crackles, no rales, no rhonchi and no wheezes Cardio: COMMON NORMALS: no JVD, regular rate, regular rhythm, S1 normal heart sound present, S2 normal heart sound present, No gallops present (Cardio), No clicks present (Cardio), No murmurs present (Cardio), No rub (Cardio) and Peripheral pulses 2+ throughout RATE: regular rate RHYTHM: regular rhythm HEART SOUNDS: S1 normal heart sound present and S2 normal heart sound present PERIPHERAL PULSES: Peripheral pulses 2+ throughout GI: COMMON NORMALS: Normal to inspection, nondistended, normoactive bowel sounds present, Soft to palpation, non-tender, No hepatosplenomegaly present and no masses AUSCULTATION: Yes normoactive bowel sounds PALPATION: Yes Soft to palpation, No Guarding due to palpation present (GI), No Rigid due to palpation and Yes No hepatosplenomegaly present RECTAL EXAM: deferred : COMMON NORMALS: Yes no CVA tenderness BLADDER/KIDNEY EXAM: Yes no CVA tenderness Back/Pelvis: COMMON NORMALS: no CVA tenderness Extremity: COMMON NORMALS: normal to inspection and full ROM Neuro: COMMON NORMALS: patient oriented x3, moves all extremities, no focal motor deficits and no sensory deficits noted SENSORIUM/ORIENTATION: Yes alert MENINGEAL SIGNS: Yes no meningeal signs Psych: COMMON NORMALS: mental status grossly normal, cooperative and speech normal SPEECH: Yes normal speech Skin: COMMON NORMALS: no rashes or lesions noted GENERAL SKIN EXAM: no rashes or lesions noted Course 2 Vital Signs: Vital signs: Vital Signs Temperature 98.0 F 07/15/24 11:49 Pulse Rate 82 07/15/24 11:49 Respiratory Rate 17 07/15/24 11:49 Blood Pressure 133/81 07/15/24 11:49 Pulse Oximetry 96 07/15/24 11:49 Oxygen Delivery Me thod Room Air 07/15/24 11:49 MDM - Abdominal Pain Medical Decision Making Patient presented with abdominal pain, 7 weeks based off last normal menstrual period. Positive home test prior to coming in. Lab work unremarkable, beta-hCG was 6810. Ultrasound did not demonstrate intrauterine crown-rump length or yolk sac, appears to be developing gestational sac estimated to be 5 weeks and 5 days. With this being early, likely why there is no intrauterine gestation identified, however they noted cannot fully rule out the ectopic being a diagnosis. She had no concerning historical elements in terms of vaginal bleeding or lightheadedness/syncope, and I spoke with on-call OB, Dr. Santacruz who states this needs close follow-up. Patient has appointment in 3 days to establish OB, and this is appropriate timeline to have these labs rechecked. Will have the patient return with any vaginal bleeding, worsening pain, or other concerns. Discussed plan with patient she agrees at this time and states that her pain is better. Lab Data 07/15/24 14:02 Labs/Radiology: Radiology Impressions Transvaginal US 07/15/24 12:20 IMPRESSION: 1. No intrauterine crown-rump length or yolk sac identified. 2. There is what appears to be developing gestational sac within age estimated at 5 weeks and 5 days. 3. Without confirming an intrauterine gestation ectopic is not excluded. Laboratory Results WBC 12.32 10^3/uL (4.5-13.0) 07/15/24 14:02 RBC 4.60 10^6/uL (3.85-5.65) 07/15/24 14:02 Hgb 12.90 g/dL (12.4-14.8) 07/15/24 14:02 Hct 39.1 % (36-47) 07/15/24 14:02 MCV 85.0 fl (85-98) 07/15/24 14:02 MCH 28.0 pg (27-33) 07/15/24 14:02 MCHC 33.0 g/dL (30-55) 07/15/24 14:02 RDW 13.1 % (12.1-15.1) 07/15/24 14:02 Plt Count 351 10^3/cmm (157-399) 07/15/24 14:02 MPV 9.9 fL (7.4-10.4) 07/15/24 14:02 Neut % (Auto) 50.4 % 07/15/24 14:02 Lymph % (Auto) 40.4 % 07/15/24 14:02 [place] % (Auto) 6.8 % 07/15/24 14:02 Eos % (Auto) 1.9 % 07/15/24 14:02 Baso % (Auto) 0.3 % 07/15/24 14:02 Neut # (Auto) 6.21 10^3/uL (1.8-8.0) 07/15/24 14:02 Lymph # (Auto) 5.0 10^3/uL (1.5-6.5) 07/15/24 14:02 [place] # (Auto) 0.8 10^3/uL (0.2-0.9) 07/15/24 14:02 Eos # (Auto) 0.2 10^3/uL (0.0-0.8) 07/15/24 14:02 Baso # (Auto) 0.0 10^3/uL (0.0-0.1) 07/15/24 14:02 Nucleated RBC % (auto) 0 % 07/15/24 14:02 Nucleated RBCs # 0.0 /100WBC 07/15/24 14:02 Ser , Semi-Qnt 6810.00 mIU/mL 07/15/24 14:02 Urine Color Yellow (Yellow) 07/15/24 12:37 Urine Appearance Clear (CLEAR) 07/15/24 12:37 Urine pH 8.0 (5-7) A 07/15/24 12:37 Ur Specific [place] 1.024 (1.005-1.030) 07/15/24 12:37 Urine Protein Negative (Negative) 07/15/24 12:37 Urine Glucose (UA) Negative (Normal) 07/15/24 12:37 Urine Ketones Negative (Negative) 07/15/24 12:37 Urine Blood Negative (Negative) 07/15/24 12:37 Urine Nitrate Negative (Negative) 07/15/24 12:37 Urine Bilirubin Negative (Negative) 07/15/24 12:37 Urine Urobilinogen 1.0 mg/dL (Negative) 07/15/24 12:37 Ur Leukocyte Esterase Negative (Negative) 07/15/24 12:37 Urine RBC 0-2 /hpf (0-2) 07/15/24 12:37 Urine WBC 6-10 /hpf (0-5) 07/15/24 12:37 Ur Squamous Epith Cells 6-10 /hpf (0-5) 07/15/24 12:37 Amorphous Sediment Not Reportable 07/15/24 12:37 Urine Bacteria Trace /hpf (NONE) 07/15/24 12:37 Hyaline Casts 0-4 /lpf H 07/15/24 12:37 All radiology interpretation(s) finalized by discharge Discharge Plan Discharge Condition: Stable Prescriptions: No Action No Known Home Medications Coding Level of Care Code ED Methods Specialist for Adrián Pardo
[2024-07-15 12:52] LABS: Bilirubin Urine Negative (Negative); Blood Urine Negative (Negative); Glucose Urine UA Negative (Normal); Ketones Urine Negative (Negative); Leukocyte Esterase Urine Negative (Negative); Nitrate Urine Negative (Negative); Protein Urine Negative (Negative); Specific Gravity, Urine 1.024 (1.005-1.030); Urine Appearance Clear (CLEAR); Urine Color Yellow (Yellow)
[2024-07-15 12:54] LABS: Add Urine Microscopic? YES; Bacteria Urine Trace /hpf; Hyaline Casts Urine 0-4 /lpf; RBC Urine 0-2 /hpf (0-2)
[2024-07-15 14:10] LABS: Basophils % 0.3 %; Eosinophils # 0.2 10^3/uL (0.0-0.8); Eosinophils % 1.9 %; Hematocrit 39.1 % (36-47); Lymphocytes % 40.4 %; Mean Platelet Volume 9.9 fL (7.4-10.4); Monocytes # 0.8 10^3/uL (0.2-0.9); Monocytes % 6.8 %; Neutrophils # 6.21 10^3/uL (1.8-8.0); Neutrophils % 50.4 %; Nucleated Red Blood Cells % 0 %; Platelet Count 351 10^3/cmm (157-399); Red Cell Distribution Width 13.1 % (12.1-15.1); White Blood Count 12.32 10^3/uL (4.5-13.0)
== END 2024-07-15 15:49 | disposition home or self-care (01) ==
PROVIDERS: Emergency Provider Physician Assistant
DX: R10.9 Unspecified abdominal pain (principal); Z3A.01 Less than 8 weeks gestation of pregnancy
CPT/HCPCS: 36415; 76817; 81001; 84702; 85025; 99284

== ENCOUNTER → 2024-07-18 10:20 | Outpatient (BNVA) | payer SELFPAY | PROVIDERS: Visit Provider Nurse Practitioner Women's Health | DX: N92.6 Irregular menstruation, unspecified (principal); N96 Recurrent pregnancy loss | CPT/HCPCS: 81025; 84702; 86850; 86900 ==

== ENCOUNTER 2024-07-21 11:03 | Outpatient (CLI) | payer BC, SELFPAY | END 2024-07-21 11:04 | disposition home or self-care (01) | PROVIDERS: Visit Provider Nurse Practitioner Women's Health | DX: N96 Recurrent pregnancy loss (principal) | CPT/HCPCS: 36415; 84702 ==

== ENCOUNTER 2024-09-10 18:00 | Emergency (ER) | payer BC, MEDICAID, SELFPAY ==
[2024-09-10 18:05] VITALS: BP 139/79; PULSE 99; RESP 17; TEMP 36.6; O2SAT 97; BMI 38.2
[2024-09-10 18:36] LABS: Basophils % 0.3 %; Eosinophils # 0.2 10^3/uL (0.0-0.8); Eosinophils % 1.2 %; Hematocrit 37.8 % (36-47); Lymphocytes # 4.3 10^3/uL (1.5-6.5); Lymphocytes % 31.5 %; Mean Corpuscular HGB Conc 33.1 g/dL (30-55); Mean Corpuscular Hemoglobin 28.1 pg (27-33); Mean Corpuscular Volume 84.9 fl (85-98); Mean Platelet Volume 9.7 fL (7.4-10.4); Monocytes % 7.1 %; Neutrophils # 8.09 10^3/uL (1.8-8.0); Neutrophils % 59.6 %; Nucleated Red Blood Cells % 0 %; Platelet Count 289 10^3/cmm (157-399); Red Blood Count 4.45 10^6/uL (3.85-5.65); Red Cell Distribution Width 13.1 % (12.1-15.1); White Blood Count 13.56 10^3/uL (4.5-13.0)
--- NOTE | 2024-09-10 18:37 | W.ED.NAVMDI ---
HPI - Nausea/Vomiting/Diarrhea General: Chief complaint: Nausea/Vomiting/Diarrhea Stated complaint: 14 weeks preg, n/v, abd pain Time Seen by Provider: 09/10/24 18:32 Source: patient Mode of arrival: ambulatory Limitations: no limitations History of Present Illness: 18-year-old female states she has been having vomiting over the last 3 to 4 days. States she is currently 14 weeks she has had morning sickness with this but states over the last 3 days her vomiting is been worse she been having some lower abdominal cramping mainly on the left side denies any severe pain she denies any vaginal bleeding or fevers. Has had a cholecystectomy Associated nausea: Yes Associated symtoms: Reports nausea; Denies chest pain or headache(s) Related Data Previous Rx's ?Medication ?Instructions ?Recorded cephalexin 500 mg capsule 500 mg PO TID 7 days #21 caps 09/10/24 ondansetron 4 mg disintegrating 4 mg PO Q6H PRN nausea and 09/10/24 tablet vomiting #14 tabs Allergies Allergy/AdvReac Type Severity Reaction Status Date / Time shellfish derived Allergy ALGY-Anaphy Verified 08/08/24 07:53 laxis Review of Systems Const: Denies: fever(s), chills, body aches or change in appetite ENMT: Denies: throat pain or dental pain Card: Denies: chest pain Resp: Denies: dyspnea GI: Reports: abdominal pain, nausea and vomiting; Denies: diarrhea Musc: Denies: neck pain or back pain Skin/Breast: Denies: rash Neuro: Denies: headache(s) PFSH ED PFSH: Family History Grandmother Heart disease paternal Hypertension maternal Thyroid disease maternal Diabetes maternal Grandfather Heart disease maternal Mother Hypertension Thyroid disease Diabetes Father Thyroid disease Social History Smoking and tobacco/nicotine status: never used tobacco/nicotine Female Reproductive History: Date of last menstrual period: 05/26/24 Physical Exam Const: COMMON NORMALS: no acute distress, patient oriented x3 and healthy appearing HENMT: COMMON NORMALS: normocephalic and atraumatic HEAD & SCALP: normocephalic and atraumatic Eye: COMMON NORMALS: conjunctivae normal CONJUNCTIVA: Yes conjunctivae normal Neck/C-Spine: COMMON NORMALS: full ROM and supple Chest: COMMONS NORMALS: normal inspection of the chest Resp: COMMON NORMALS: normal respiratory effort Cardio: COMMON NORMALS: regular rate RATE: regular rate GI: COMMON NORMALS: Normal to inspection, nondistended, normoactive bowel sounds present, Soft to palpation and non-tender PALPATION: Yes Soft to palpation Extremity: COMMON NORMALS: normal to inspection and full ROM Neuro: COMMON NORMALS: patient oriented x3, moves all extremities and no focal motor deficits Psych: COMMON NORMALS: mental status grossly normal, Normal thought process present and cooperative THOUGHT PROCESS: Normal thought process present Skin: COMMON NORMALS: no rashes or lesions noted and no wounds GENERAL SKIN EXAM: no rashes or lesions noted Course Vital Signs: Vital signs: Vital Signs Temperature 97.8 F 09/10/24 18:05 Pulse Rate 84 09/10/24 20:06 Respiratory Rate 16 09/10/24 20:06 Blood Pressure 138/92 09/10/24 20:06 Pulse Oximetry 99 09/10/24 20:06 Oxygen Delivery Me thod Room Air 09/10/24 20:06 MDM - Nausea/Vomiting/Diarrhea Medical Decision Making Patient presents with vomiting in abdominal exam here is benign did do a bedside ultrasound IUP consistent with dates heart rate in the 140s. She feels much improved here has been able to tolerate p.o. she does have a UTI we will place her on Zofran Keflex she is to follow-up with her OB. Medical Records I reviewed the patient's medical records. Lab Data I reviewed the patient's lab results. 09/10/24 18:28 09/10/24 18:28 Laboratory Results WBC 13.56 10^3/uL (4.5-13.0) H 09/10/24 18: RBC 4.45 10^6/uL (3.85-5.65) 09/10/24 18: Hgb 12.50 g/dL (12.4-14.8) 09/10/24 18: Hct 37.8 % (36-47) 09/10/24 18:28 MCV 84.9 fl (85-98) L 09/10/24 18: MCH 28.1 pg (27-33) 09/10/24 18:28 MCHC 33.1 g/dL (30-55) 09/10/24 18: RDW 13.1 % (12.1-15.1) 09/10/24 18: Plt Count 289 10^3/cmm (157-399) 09/10/24 18: MPV 9.7 fL (7.4-10.4) 09/10/24 18: Neut % (Auto) 59.6 % 09/10/24 18: Lymph % (Auto) 31.5 % 09/10/24 18: [place] % (Auto) 7.1 % 09/10/24 18: Eos % (Auto) 1.2 % 09/10/24 18: Baso % (Auto) 0.3 % 09/10/24 18: Neut # (Auto) 8.09 10^3/uL (1.8-8.0) H 09/10/24 18: Lymph # (Auto) 4.3 10^3/uL (1.5-6.5) 09/10/24 18: [place] # (Auto) 1.0 10^3/uL (0.2-0.9) H 09/10/24 18: Eos # (Auto) 0.2 10^3/uL (0.0-0.8) 09/10/24 18: Baso # (Auto) 0.0 10^3/uL (0.0-0.1) 09/10/24 18: Nucleated RBC % (auto) 0 % 09/10/24 18: Nucleated RBCs # 0.0 /100WBC 09/10/24 18: Sodium 136 mmol/L (136-145) 09/10/24 18: Potassium 4.0 mmol/L (3.5-5.1) 09/10/24 18: Chloride 102 mmol/L (98-107) 09/10/24 18: Carbon Dioxide 24 mmol/L (22-29) 09/10/24 18: Anion Gap 14.0 (5-19) 09/10/24 18: BUN 5 mg/dL (6-20) L 09/10/24 18: Creatinine 0.4 mg/dL (0.5-0.9) L 09/10/24: GFR Calculation 203.5 mL/min (90-130) H 09/10/24 18: Glucose 104 mg/dL (65-115) 09/10/24 18: Calculated Osmolality 280 mOsm/kg (285-295) L 09/10/24 18: Calcium 10.1 mg/dL (8.5-10.5) 09/10/24 18: Total Bilirubin 0.2 mg/dL (0.15-1.2) 09/10/24 18: AST 14 U/L (0-32) 09/10/24 18: ALT 17 U/L (0-33) 09/10/24 18: Alkaline Phosphatase 86 U/L (35-105) 09/10/24 18: Total Protein 6.3 g/dL (6.6-8.7) L 09/10/24 18: Albumin 3.7 g/dL (3.5-5.2) 09/10/24 18: Globulin 2.6 g/dL (1.3-4.6) 09/10/24 18: Lipase 17 U/L (13-60) 09/10/24 18: Urine Color Yellow (Yellow) 09/10/24 20: Urine Appearance Cloudy (CLEAR) A 09/10/24 20: Urine pH 6.5 (5-7) 09/10/24 20: Ur Specific [place] 1.021 (1.005-1.030) 09/10/24 20:06 Urine Protein Negative (Negative) 09/10/24 20: Urine Glucose (UA) Negative (Normal) 09/10/24 20: Urine Ketones Negative (Negative) 09/10/24 20: Urine Blood Negative (Negative) 09/10/24 20: Urine Nitrate Negative (Negative) 09/10/24 20: Urine Bilirubin Negative (Negative) 09/10/24 20: Urine Urobilinogen 1.0 mg/dL (Negative) 09/10/24 20:06 Ur Leukocyte Esterase 2+ (Negative) A 09/10/24 20:06 Urine RBC 0-2 /hpf (0-2) 09/10/24 20:06 Urine WBC 11-20 /hpf (0-5) H 09/10/24 20:06 Ur Squamous Epith Cells 6-10 /hpf (0-5) 09/10/24 20:06 Amorphous Sediment Not Reportable 09/10/24 20:06 Urine Bacteria 1+ /hpf (NONE) H 09/10/24 20:06 Hyaline Casts 0.40 /lpf 09/10/24 20:06 No radiology studies performed this visit Discharge Plan Discharge Patient Disposition: Home Clinical Impression: Vomiting affecting , UTI in Condition: Stable Prescriptions: New cephalexin 500 mg capsule 500 mg PO TID 7 Days Qty: 21 0RF ondansetron 4 mg tablet,disintegrating 4 mg PO Q6H PRN (Reason: nausea and vomiting) Qty: 14 0RF Discharge Orders: Discharge ED (Routine); Ordered 09/10/24 Ordered By: Liilan Cruz Discharge Diet: Advance as tolerated Discharge Activity: Resume usual activity Patient Instructions: Nausea and Vomiting in (ED), Urinary Tract Infection in (ED) Print Language: Divehi Coding Level of Care Code ED [employer] for Adrián Pardo
[2024-09-10 18:56] LABS: Alanine Aminotransferase 17 U/L (0-33); Albumin Level 3.7 g/dL (3.5-5.2); Alkaline Phosphatase 86 U/L (35-105); Aspartate Amino Transferase 14 U/L (0-32); Blood Urea Nitrogen 5 mg/dL (6-20); Calcium 10.1 mg/dL (8.5-10.5); Carbon Dioxide 24 mmol/L (22-29); Chloride 102 mmol/L (98-107); Creatinine Clr Calc Pharmacy 268.9202; Globulin 2.6 g/dL (1.3-4.6); Glomerular Filtration Rate 203.5 mL/min (90-130); Glucose 104 mg/dL (65-115); Lipase 17 U/L (13-60); Osmolality Calculated 280 mOsm/kg (285-295); Sodium 136 mmol/L (136-145); Total Bilirubin 0.2 mg/dL (0.15-1.2); Total Protein 6.3 g/dL (6.6-8.7)
[2024-09-10] MEDS: diphenhydrAMINE 50 mg/mL SDV 1mL IVP (19:05)
[2024-09-10] MEDS: metoclopramide 5 mg/mL SDV 2 mL 10 MG IVP (19:08)
[2024-09-10] MEDS: sodium chloride 0.9% 1,000 ML 999 ML IV (19:08)
[2024-09-10 19:43] VITALS: BP 117/87; PULSE 85; RESP 18; O2SAT 100
[2024-09-10 20:06] VITALS: BP 138/92; PULSE 84; RESP 16; O2SAT 99
[2024-09-10] MEDS: ondansetron 2 mg/ML SDV 2 mL 4 MG IVP (20:08)
[2024-09-10 20:19] LABS: Bilirubin Urine Negative (Negative); Blood Urine Negative (Negative); Glucose Urine UA Negative (Normal); Ketones Urine Negative (Negative); Leukocyte Esterase Urine 2+ (Negative); Nitrate Urine Negative (Negative); Protein Urine Negative (Negative); Specific Gravity, Urine 1.021 (1.005-1.030); Urine Appearance Cloudy (CLEAR); Urine Color Yellow (Yellow); pH Urine 6.5 (5-7)
[2024-09-10 20:24] LABS: Add Urine Microscopic? YES; Bacteria Urine 1+ /hpf; RBC Urine 0-2 /hpf (0-2)
[2024-09-10 20:54] VITALS: BP 140/97; PULSE 84; RESP 16; O2SAT 93
== END 2024-09-10 20:59 | disposition home or self-care (01) ==
PROVIDERS: Emergency Provider Emergency Medicine
DX: O21.9 Vomiting of pregnancy, unspecified (principal); O23.42 Unspecified infection of urinary tract in pregnancy, second trimester; N39.0 Urinary tract infection, site not specified; Z3A.14 14 weeks gestation of pregnancy
CPT/HCPCS: 36415; 80053; 81001; 83690; 85025; 96361; 96374; 96375; 99284; J1200; J2405; J2765; J7030

== ENCOUNTER 2024-10-09 15:38 | Emergency (ER) | payer BC, MEDICAID, SELFPAY ==
[2024-10-09 15:48] VITALS: BP 119/77; PULSE 112; RESP 17; TEMP 36.3; O2SAT 98; BMI 39.9
--- NOTE | 2024-10-09 15:52 | ECG_ITS ---
[facility] Date: 2024-10-09 Pat Name: Malgorzata Schilling Department: Room: Gender: Female Chief Guard: : 2005 Requested By: Chris Vasquez Order Number: [id number] Gentile MD: Omar Rosales M.D. Measurements Intervals [place] Rate: 102 P: 58 OR: 138 QRS: 80 QRSD: 81 T: 40 QT: 304 QTc: 396 Interpretive Statements SINUS TACHYCARDIA NONSPECIFIC T-WAVE ABNORMALITY ABNORMAL RHYTHM ECG No previous ECG available for comparison , 4 years intermittent normal chest pains [employer] Electronically Signed On 10-09-2024 19:41:52 CDT by Omar Rosales M.D. [email or web address]
--- NOTE | 2024-10-09 17:09 | W.ED.DIZZY ---
HPI - Dizziness General: Chief Complaint: Dizziness Stated Complaint: high heart rate-19 wks preg Time Seen by Provider: 10/09/24 16:56 Source: patient Mode of arrival: ambulatory Limitations: no limitations History of Present Illness: HPI Narrative: 18yo female at approximately 19 weeks gestation presents with dizziness, high heart rate, pelvic pressure, and generally not feeling well. Patient reports this is similar to the symptoms she had when she was diagnosed with preeclampsia during her first in 2021. Patient reports that she delivered at 32 weeks due to the preeclampsia and was hospitalized from 26 weeks until delivery. Patient reports that she has had 4 miscarriages in between the first and this . Patient states that she started having pelvic pressure yesterday and that her Apple watch has told her she had a high heart rate all day today. Patient reports that she has had vomiting as well. Patient denies recent illness, difficulty breathing, shortness of breath, chest pain, abdominal pain, vaginal bleeding, vaginal discharge, diarrhea. Associated symptoms: Reports nausea, palpitations and vomiting; Denies chest pain Related Data Home Medications ?Medication ?Instructions ?Recorded ?Confirmed aspirin 81 mg tablet,delayed 81 mg PO DAILY 09/11/24 09/11/24 release vitamins no.121-iron 28 tab PO 09/11/24 09/11/24 mg-folic acid 800 mcg tablet Previous Rx's ?Medication ?Instructions ?Recorded albuterol sulfate 90 mcg/actuation 2 puff inhalation Q6H PRN 09/11/24 aerosol inhaler shortness of breath or wheezing #8.5 grams doxylamine succinate 25 mg tablet See Rx Instructions .Route 09/11/24 .COMPLEX PRN nausea #30 tabs pyridoxine (vitamin B6) 100 mg 100 mg PO BID PRN Nausea #60 tabs 09/11/24 tablet ondansetron 4 mg disintegrating 4 mg PO Q8H PRN nausea and 10/09/24 tablet vomiting #20 tabs Allergies Allergy/AdvReac Type Severity Reaction Status Date / Time shellfish derived Allergy ALGY-Anaphy Verified 10/09/24 15:52 laxis Review of Systems Const: Denies: fever(s) or body aches Card: Reports: palpitations; Denies: chest pain Resp: Denies: dyspnea GI: Reports: nausea and vomiting; Denies: diarrhea : Denies: flank pain, difficulty voiding or dysuria Musc: Denies: back pain PFSH ED PFSH: Surgical History (Updated 09/11/24 @ 09:23 by Dany Prince MD) History of cholecystectomy Hx of endoscopy Family History (Updated 09/11/24 @ 09:26 by Dany Prince MD) Grandmother Heart disease paternal Hypertension maternal Thyroid disease maternal Diabetes maternal Grandfather Heart disease maternal Mother Hypertension Thyroid disease Diabetes Father Thyroid disease Family/Other , of bone cancer No problems noted. 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 She is sitting upright on the stretcher no acute distress. She is able to give history with no difficulty. She is interactive with exam appropriately. No family is at bedside at time of exam HENMT: COMMON NORMALS: normocephalic and atraumatic HEAD & SCALP: normocephalic and atraumatic Neck/C-Spine: COMMON NORMALS: full ROM Chest: CHEST: Yes Symmetrical chest wall rise Resp: COMMON NORMALS: normal respiratory effort, No use of accessory muscles and clear to auscultation bilaterally EFFORT & INSPECTION: Yes able to speak in complete sentences and Yes symmetric chest movement AUSCULTATION: clear to auscultation bilaterally Cardio: COMMON NORMALS: regular rate and regular rhythm RATE: regular rate RHYTHM: regular rhythm GI: COMMON NORMALS: Soft to palpation and non-tender PALPATION: Yes Soft to palpation : COMMON NORMALS: Yes no CVA tenderness BLADDER/KIDNEY EXAM: Yes no CVA tenderness Back/Pelvis: COMMON NORMALS: no CVA tenderness Extremity: COMMON NORMALS: full ROM Neuro: COMMON NORMALS: patient oriented x3 and moves all extremities SENSORIUM/ORIENTATION: Yes alert Psych: COMMON NORMALS: cooperative Course ED course: No thrombocytopenia, platelet count noted to be 310. No electrolyte, renal, or hepatic abnormalities noted. Vital Signs: Vital signs: Vital Signs Temperature 97.3 F L 10/09/24 15:48 Pulse Rate 85 10/09/24 20:00 Respiratory Rate 20 H 10/09/24 19:30 Blood Pressure 117/74 10/09/24 20:00 Pulse Oximetry 100 10/09/24 20:00 Oxygen Delivery Me thod Room Air 10/09/24 15:48 MDM - Dizziness Medical Decision Making 18yo female at approximately 19 weeks gestation presents with dizziness, high heart rate, pelvic pressure, and generally not feeling well. Patient reports this is similar to the symptoms she had when she was diagnosed with preeclampsia during her first in 2021. Patient reports that she delivered at 32 weeks due to the preeclampsia and was hospitalized from 26 weeks until delivery. Patient reports that she has had 4 miscarriages in between the first and this . Patient states that she started having pelvic pressure yesterday and that her Apple watch has told her she had a high heart rate all day today. Patient reports that she has had vomiting as well. Patient denies recent illness, difficulty breathing, shortness of breath, chest pain, abdominal pain, vaginal bleeding, vaginal discharge, diarrhea. Patient is nontoxic in appearance. Vital signs are stable. Mild leukocytosis with a white blood cell count of 14.54, likely related to . No indication of anemia with a hemoglobin of 13.2. No electrolyte abnormalities noted. No renal or hepatic abnormalities noted. UA with trace protein, 1+ ketones, trace leukocyte esterase. Discussed these findings with patient. Patient did report improvement in her symptoms after 1 L normal saline bolus. Discussed with patient that she does not have indicators of preeclampsia at this time. Encourage patient to continue to monitor her symptoms for any worsening. Also encourage patient to try to increase her fluid intake. Ondansetron prescribed for the nausea/vomiting. Recommend she follow-up with TRANSPORT SPECIALIST, call tomorrow with an update of symptoms and to discuss a recheck. Return precautions provided. Patient states understanding and has no further questions or concerns at this time. Medical Records I reviewed the patient's medical records. Lab Data I reviewed the patient's lab results. 10/09/24 17:48 10/09/24 17:48 Laboratory Results WBC 14.54 10^3/uL (4.5-13.0) H 10/09/24 17:48 RBC 4.63 10^6/uL (3.85-5.65) 10/09/24 17:48 Hgb 13.20 g/dL (12.4-14.8) 10/09/24 17:48 Hct 40.1 % (36-47) 10/09/24 17:48 MCV 86.6 fl (85-98) 10/09/24 17:48 MCH 28.5 pg (27-33) 10/09/24 17:48 MCHC 32.9 g/dL (30-55) 10/09/24 17:48 RDW 13.5 % (12.1-15.1) 10/09/24 17:48 Plt Count 310 10^3/cmm (157-399) 10/09/24 17:48 MPV 10.2 fL (7.4-10.4) 10/09/24 17:48 Neut % (Auto) 60.8 % 10/09/24 17:48 Lymph % (Auto) 30.9 % 10/09/24 17:48 [place] % (Auto) 6.4 % 10/09/24 17:48 Eos % (Auto) 1.2 % 10/09/24 17:48 Baso % (Auto) 0.3 % 10/09/24 17:48 Neut # (Auto) 8.83 10^3/uL (1.8-8.0) H 10/09/24 17:48 Lymph # (Auto) 4.5 10^3/uL (1.5-6.5) 10/09/24 17:48 [place] # (Auto) 0.9 10^3/uL (0.2-0.9) 10/09/24 17:48 Eos # (Auto) 0.2 10^3/uL (0.0-0.8) 10/09/24 17:48 Baso # (Auto) 0.1 10^3/uL (0.0-0.1) 10/09/24 17:48 Nucleated RBC % (auto) 0 % 10/09/24 17:48 Nucleated RBCs # 0.0 /100WBC 10/09/24 17:48 Sodium 137 mmol/L (136-145) 10/09/24 17:48 Potassium 3.7 mmol/L (3.5-5.1) 10/09/24 17:48 Chloride 103 mmol/L (98-107) 10/09/24 17:48 Carbon Dioxide 23 mmol/L (22-29) 10/09/24 17:48 Anion Gap 14.7 (5-19) 10/09/24 17:48 BUN 6 mg/dL (6-20) 10/09/24 17:48 Creatinine 0.4 mg/dL (0.5-0.9) L 10/09/24 17:48 GFR Calculation 203.5 mL/min (90-130) H 10/09/24 17:48 Glucose 83 mg/dL (65-115) 10/09/24 17:48 POC Glucose 92 mg/dL (70-110) 10/09/24 17:16 Calculated Osmolality 281 mOsm/kg (285-295) L 10/09/24 17:48 Calcium 10.5 mg/dL (8.5-10.5) 10/09/24 17:48 Total Bilirubin 0.2 mg/dL (0.15-1.2) 10/09/24 17:48 AST 12 U/L (0-32) 10/09/24 17:48 ALT 12 U/L (0-33) 10/09/24 17:48 Alkaline Phosphatase 84 U/L (35-105) 10/09/24 17:48 Total Protein 6.5 g/dL (6.6-8.7) L 10/09/24 17:48 Albumin 3.9 g/dL (3.5-5.2) 10/09/24 17:48 Globulin 2.6 g/dL (1.3-4.6) 10/09/24 17:48 Urine Color Yellow (Yellow) 10/09/24 18:40 Urine Appearance Clear (CLEAR) 10/09/24 18:40 Urine pH 6.0 (5-7) 10/09/24 18:40 Ur Specific [place] 1.030 (1.005-1.030) 10/09/24 18:40 Urine Protein Trace (Negative) A 10/09/24 18:40 Urine Glucose (UA) Negative (Normal) 10/09/24 18:40 Urine Ketones 1+ (Negative) H 10/09/24 18:40 Urine Blood Negative (Negative) 10/09/24 18:40 Urine Nitrate Negative (Negative) 10/09/24 18:40 Urine Bilirubin Negative (Negative) 10/09/24 18:40 Urine Urobilinogen 1.0 mg/dL (Negative) 10/09/24 18:40 Ur Leukocyte Esterase Trace (Negative) A 10/09/24 18:40 Urine RBC 0-2 /hpf (0-2) 10/09/24 18:40 Urine WBC 6-10 /hpf (0-5) 10/09/24 18:40 Ur Squamous Epith Cells 6-10 /hpf (0-5) 10/09/24 18:40 Amorphous Sediment Not Reportable 10/09/24 18:40 Urine Bacteria Trace /hpf (NONE) 10/09/24 18:40 Hyaline Casts 1.21 /lpf 10/09/24 18:40 No radiology studies performed this visit Discharge Plan Discharge Patient Disposition: Home Clinical Impression: Vomiting during , Dizziness, nonspecific Condition: Stable Prescriptions: New ondansetron 4 mg tablet,disintegrating 4 mg PO Q8H PRN (Reason: nausea and vomiting) Qty: 20 0RF Discontinued ondansetron 4 mg tablet,disintegrating 4 mg PO Q6H PRN (Reason: nausea and vomiting) Qty: 14 0RF No Action PNV no.[id number] acid 28 mg iron- 800 mcg tablet PO aspirin 81 mg tablet,delayed release (DR/EC) 81 mg PO DAILY doxylamine succinate 25 mg tablet See Rx Instructions .Route .COMPLEX PRN (Reason: nausea) Qty: 30 6RF Rx Instructions: Take 1 tab by mouth each evening and 1/2 tab in the am as needed for nausea PRN; pyridoxine (vitamin B6) 100 mg tablet 100 mg PO BID PRN (Reason: Nausea) Qty: 60 3RF albuterol sulfate 90 mcg/actuation HFA aerosol inhaler 2 puff inhalation Q6H PRN (Reason: shortness of breath or wheezing) Qty: 8.5 6RF Discharge Orders: Discharge ED (Routine); Ordered 10/09/24 Ordered By: Dandre May Referrals: Dany Prince MD [Primary Care Provider] - Discharge Diet: Advance as tolerated Discharge Activity: Resume usual activity Patient Instructions: Nausea and Vomiting in (ED) Activity Restrictions/Additional Instructions: Your labs do not give any indication of preeclampsia today. Your blood pressure has also been in the normal range. The dizziness is likely related to being slightly behind on your fluids. Please try to increase your fluid intake Another prescription of ondansetron has been sent to the pharmacy for nausea/vomiting. Follow-up with your TRANSPORT SPECIALIST, call tomorrow with an update and to discuss follow-up Return to the emergency department if any rapid worsening symptoms and as needed Print Language: Indonesian Coding Level of Care Code ED Home Health Care Case Manager for Adrián Pardo
[2024-10-09 17:23] LABS: Glucose Point of Care 92 mg/dL (70-110)
[2024-10-09 17:55] LABS: Basophils # 0.1 10^3/uL (0.0-0.1); Basophils % 0.3 %; Eosinophils # 0.2 10^3/uL (0.0-0.8); Eosinophils % 1.2 %; Hematocrit 40.1 % (36-47); Lymphocytes # 4.5 10^3/uL (1.5-6.5); Lymphocytes % 30.9 %; Mean Corpuscular HGB Conc 32.9 g/dL (30-55); Mean Corpuscular Hemoglobin 28.5 pg (27-33); Mean Corpuscular Volume 86.6 fl (85-98); Mean Platelet Volume 10.2 fL (7.4-10.4); Monocytes # 0.9 10^3/uL (0.2-0.9); Monocytes % 6.4 %; Neutrophils # 8.83 10^3/uL (1.8-8.0); Neutrophils % 60.8 %; Nucleated Red Blood Cells % 0 %; Platelet Count 310 10^3/cmm (157-399); Red Blood Count 4.63 10^6/uL (3.85-5.65); Red Cell Distribution Width 13.5 % (12.1-15.1); White Blood Count 14.54 10^3/uL (4.5-13.0)
[2024-10-09] MEDS: sodium chloride 0.9% 1,000 ML 999 ML IV (18:05)
[2024-10-09 18:13] LABS: Alanine Aminotransferase 12 U/L (0-33); Albumin Level 3.9 g/dL (3.5-5.2); Alkaline Phosphatase 84 U/L (35-105); Anion Gap 14.7 (5-19); Aspartate Amino Transferase 12 U/L (0-32); Blood Urea Nitrogen 6 mg/dL (6-20); Calcium 10.5 mg/dL (8.5-10.5); Carbon Dioxide 23 mmol/L (22-29); Chloride 103 mmol/L (98-107); Creatinine Clr Calc Pharmacy 275.3462; Globulin 2.6 g/dL (1.3-4.6); Glomerular Filtration Rate 203.5 mL/min (90-130); Glucose 83 mg/dL (65-115); Osmolality Calculated 281 mOsm/kg (285-295); Potassium 3.7 mmol/L (3.5-5.1); Sodium 137 mmol/L (136-145); Total Bilirubin 0.2 mg/dL (0.15-1.2); Total Protein 6.5 g/dL (6.6-8.7)
[2024-10-09 18:30] VITALS: PULSE 87; RESP 12; O2SAT 99
[2024-10-09 19:00] VITALS: PULSE 86; RESP 20; O2SAT 98
[2024-10-09 19:09] LABS: Bilirubin Urine Negative (Negative); Blood Urine Negative (Negative); Glucose Urine UA Negative (Normal); Ketones Urine 1+ (Negative); Leukocyte Esterase Urine Trace (Negative); Nitrate Urine Negative (Negative); Protein Urine Trace (Negative); Urine Appearance Clear (CLEAR); Urine Color Yellow (Yellow)
[2024-10-09 19:14] LABS: Add Urine Microscopic? YES; Bacteria Urine Trace /hpf; Hyaline Casts Urine 1.21 /lpf; RBC Urine 0-2 /hpf (0-2)
[2024-10-09 19:22] LABS: Add Urine Culture? No
[2024-10-09 19:30] VITALS: BP 120/74; PULSE 95; RESP 20; O2SAT 99
[2024-10-09 20:00] VITALS: BP 117/74; PULSE 85; O2SAT 100
== END 2024-10-09 20:02 | disposition home or self-care (01) ==
PROVIDERS: Emergency Provider Nurse Practitioner; PCP Family Medicine
DX: O21.9 Vomiting of pregnancy, unspecified (principal); Z3A.19 19 weeks gestation of pregnancy; R42 Dizziness and giddiness; Z79.82 Long term (current) use of aspirin
CPT/HCPCS: 36415; 36416; 80053; 81001; 82962; 85025; 93005; 99284; J7030

== ENCOUNTER 2025-01-08 09:40 | Outpatient (CLI) | payer BC, MEDICAID, SELFPAY ==
[2025-01-08 09:40] VITALS: BMI 41.9
[2025-01-08 10:00] VITALS: BP 130/75; PULSE 131
[2025-01-08 10:12] LABS: Glucose Urine UA Negative (Normal); Nitrate Urine Negative (Negative); Specific Gravity, Urine 1.020 (1.005-1.030)
[2025-01-08 10:15] VITALS: BP 122/79; PULSE 121
[2025-01-08 10:30] VITALS: BP 123/75; PULSE 103
[2025-01-08 10:45] VITALS: BP 95/55; PULSE 120
--- NOTE | 2025-01-08 10:59 | PC.NURSE ---
cefdinir 300mg PO BID for 7 days has been called in to [facility] in [place].
[2025-01-08 11:00] VITALS: BP 141/70; PULSE 108
[2025-01-08 11:24] VITALS: BP 141/70; PULSE 108; RESP 17; O2SAT 98
== END 2025-01-08 11:24 | disposition home or self-care (01) ==
LOC: OPOB 09:48 → OBGYN 09:48
PROVIDERS: PCP Family Medicine; Visit Provider Family Medicine
DX: O36.8190 Decreased fetal movements, unspecified trimester, not applicable or unspecified (principal); Z3A.00 Weeks of gestation of pregnancy not specified; M54.9 Dorsalgia, unspecified
CPT/HCPCS: 59025; 81001; 87086; 96372; 99211; J0696; J9999

== ENCOUNTER 2025-02-03 18:50 | Outpatient (CLI) | payer BC, MEDICAID, SELFPAY ==
[2025-02-03] VITALS (11 sets, daily range): BP systolic 117–126; BP diastolic 55–65; PULSE 96–141; RESP 17; O2SAT 96–98
== END 2025-02-03 19:38 | disposition home or self-care (01) ==
LOC: OPOB 18:52 → OBGYN 18:52
PROVIDERS: PCP Family Medicine; Visit Provider Obstetrics & Gynecology
DX: O13.9 Gestational [pregnancy-induced] hypertension without significant proteinuria, unspecified trimester (principal); Z3A.00 Weeks of gestation of pregnancy not specified; R42 Dizziness and giddiness
CPT/HCPCS: 59025; 99211

== ENCOUNTER 2025-02-03 19:42 | Emergency (ER) | payer BC, MEDICAID, SELFPAY ==
[2025-02-03] VITALS (9 sets, daily range): BP systolic 111–142; BP diastolic 61–86; PULSE 87–106; RESP 14–20; TEMP 36.6; O2SAT 98–100
--- NOTE | 2025-02-03 19:49 | ECG_ITS ---
[employer] Wire Test Date: 2025-02-03 Pat Name: Malgorzata Schilling Department: Room: Gender: Female Hand Rounder: : 2005 Requested By: Frank Ty Order Number: [id number] Gentile MD: Omar Rosales M.D. Measurements Intervals [place] Rate: 94 P: 16 UT: 124 QRS: 44 QRSD: 81 T: 14 QT: 303 QTc: 379 Interpretive Statements SINUS RHYTHM NONSPECIFIC T-WAVE ABNORMALITY Compared to ECG 10/09/2024 15:56:03 Sinus tachycardia no longer present T-wave abnormality still present Electronically Signed On 02-08-2025 09:16:09 CDT by Omar Rosales M.D. [id number]
--- OUTSIDE RECORDS SUMMARY | 2025-02-03 19:50 | XMS_ITS | Clinical Summary ---
Author Organization [facility] on Address [address] [place] [address] Phone Care Team Providers Care Incubator Machine Operator Name Role Phone Unavailable Primary Care Provider Unavailabl e Allergies No known active allergies Medications albuterol HFA 90 mcg inhaler Take by inhalation. Active fluticasone propion-salmete roL 113-14 mcg/actuation Aerosol Powdr Breath Activated Take 1 Inhaler by inhalation 2 times daily. 1 Each 3 Active Active Problems Problem Noted Date Diagnosed Date Viral gastroenteritis 06/22/2023 Acute cystitis without hematuria 04/24/2023 Ovulatory pain 04/24/2023 Comments Yes Family History Medical History Relation Name Comments Healthy Father Healthy Mother Relation Name Status Comments Father Alive Mother Alive Social History Tobacco Use Types Packs/Day Years Used Date Smoking Tobacco: Never Smokeless Tobacco: Never Tobacco Cessation:Counseling Given: Yes Alcohol Use Standard Drinks/Week Comments No 0 (1 standard drink = 0.6 oz pur e alcohol) Comments Yes Sex and Gender Information Value Date Recorded Sex Assigned at Not on file 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 Gender Identity Not on file Sexual Orientation Not on file Last Filed Vital Signs Vital Sign Reading Time Taken Comments Blood Pressure 119/62 12/13/2023 8:00 AM CDT Pulse 86 12/13/2023 8:00 AM CDT Temperature 35.8 C (96.5 F) 12/13/2023 7:31 AM CDT Respiratory Rate 18 12/13/2023 8:00 AM CDT Oxygen Saturation 98% 12/13/2023 8:00 AM CDT Inhaled Oxygen Concentration - - Weight 110 kg (242 lb 6.4 oz) 12/13/2023 7:31 AM CDT Height 165.1 cm (5' 5 ) 12/13/2023 7:31 AM CDT Body Mass Index 40.34 12/13/2023 7:31 AM CDT Plan of Treatment Health Maintenance Due Date Last Done Comments CHLAMYDIA SCREENING (ANNUAL) 11-24 YEARS 12/17/2014 HPV VACCINES (1 - 3-dose series) 12/17/2018 DTAP/TDAP/TD VACCINES (1 - Tdap) 12/17/2022 HEPATITIS B VACCINES (1 of 3 - 19+ 3-dose series) 06/2022 CERVICAL CANCER SCREENING 12/17/2024 HPV/Cotest (21-29) 12/17/2024 PAP SMEAR 12/17/2024 INFLUENZA VACCINE (#1) 2025 RSV VACCINE (60+ or ) (1 - 1-dose 75+ series) 12/17/2078 Insurance [facility] Activity [employer] CHOICE [facility] [id number] Advance Directives For more information, please contact: [phone] * Full Code (Latest Code Status on File) Date Activated Date Inactivated Comments 08/20/2020 8:14 AM 08/20/2020 1:19 PM * Full Code Date Activated Date Inactivated Comments 04/12/2019 11:56 AM 04/12/2019 4:33 PM
--- OUTSIDE RECORDS SUMMARY | 2025-02-03 19:50 | XMS_ITS | Patient Health Record ---
Author Organization [facility] [employer] [place] [facility] [place] [place]. Address [address] [place] [address] Care Team Providers Care Artificial Breeding Technician Name Role Phone Krystle Valdo Primary Care Provider [phone] Allergies Allergen (clinical drug ingredient) Drug/Non Drug Allergy documented on EMR Reaction Allergy Type Onset Date Status Neisseria meningitidis serogroup A capsular polysaccharide diphtheria toxoid protein conjugate vaccine / Neisseria meningitidis serogroup C capsular polysaccharide diphtheria toxoid protein conjugate vaccine / Neisseria meningitidis serogroup W-135 capsular polysaccharide diphtheria toxoid protein conjugate vaccine / Neisseria meningitidis serogroup Y capsular polysaccharide diphtheria toxoid protein conjugate vaccine Menactra Unknown Drug Allergy Active Reason For Referral No Information Medications Medication SIG (Take, Route, Frequency, Duration) Notes Start Date End Date Status ProAir HFA CFC free 90 mcg/inh aerosol 1-2 puffs inhaled 4 times a day prn sob; Duration: 30 day(s) *Reorder from [facility] for eRx and Interaction Alerts* 04/22/2016 Active Immunizations Vaccine Route Administration Date Status Comme nts Meningococcal MCV4P IM Intramuscular 09/22/2016 Administer ed Meningococcal MCV4P IM Intramuscular 02/08/2021 Administer ed Tdap IM Intramuscular 09/22/2016 Administered Social History Social History Additional Details Category Social Info Options Details Migrated Social History Migrated Social History (Alcohol:):no How often did you have a drink containing alcohol in the past year? never (0 points), How many drinks did you have on a typical day when you were drinking in the past year? 1 or 2 drinks (0 points), Points 0, Interpretation Negative (Marital Status:):single (Smoking:):no Are you a: never smoker Problems Problem Type SNOMED Code ICD Code Onset Dates Problem Status W/U Status Risk Notes Problem Dysthymia (56577393) Dysthymia (F34.1) Active confirmed Problem Mild intermittent asthma (397366695) Mild intermittent asthma without complication (J45.20) Active confirmed Problem Obesity (E66.9) Active confirmed Plan Of Treatment Pending Test Test Name Order Date Comp. Metabolic Panel (14) 05/30/2017 Comp. Metabolic Panel (14) 05/09/2022 CBC With Differential/Platelet 2 CBC With Differential/Platelet 0 CBC With Differential/Platelet 7 Sedimentation Rate-Westergren 05/09/2022 Rheumatoid Arthritis Factor 05/09/2022 Calcium, Serum 03/03/2020 Uric Acid, Serum 05/09/2022 LENCHO w/Reflex 05/09/2022 AZ-US ABDOMEN, LIMITED* 06/05/2020 AZ-X CERV SPINE, 2-3V 07/13/2021 AZ-X CERV SPINE, 2-3V 02/15/2018 HIDA SCAN WITH EJECTION FRACTION 021 AZ-X KNEE, LT, 1-2V* 03/19/2020 AZ-X LS-SPINE, 2-3V 05/25/2017 24 Hour Holter Moniter 02/27/2020 Insurance Providers Payer Name Payer Address Payer Phone Subscriber Number Group Number Insured Name Patient Relationship to Insured Coverage Start Date Coverage End Date [employer] [address] [place] [phone] [id number] Shyanne Schilling Child - Insured has Financial Responsibility 6 Medical (General) History Medical History History ICD Code Other obesity due to excess calories 278 .00 Mild intermittent asthma without complic ation Dysthymia F34.1 Surgical History Surgery Date(Month/Year) NONE
--- NOTE | 2025-02-03 20:25 | ED_ITS ---
HPI - Arrhythmia/Palpitations 2 General: Chief Complaint: Arrhythmia/Palpitations Stated Complaint: Heart Rate Fast\Cleared by OB Time Seen by Provider: 02/03/25 19:55 History of Present Illness: Patient is a 19-year-old female 35 weeks gestation, comes in today with palpitations. She states that she has been having palpitations for 3 weeks, since 32 weeks , and is currently wearing a Holter monitor. She states that her palpitations were much worse today. It is at rest and worse with activity. She is not lightheaded, or dizzy with activity or standing. She has strength 5 large liter cups of fluid today. She has not called her OB doctor in [place], Dr. Galloway. Associated symptoms: Deny anxiety, nausea, syncope or vomiting Related Data Home Medications ?Medication ?Instructions ?Recorded ?Confirmed aspirin 81 mg tablet,delayed 81 mg PO DAILY 09/11/24 0 02/03/25 release vitamins no.121-iron 28 1 tab PO DAILY 02/03/25 mg-folic acid 800 mcg tablet Allergies Allergy/AdvReac Type Severity Reaction Status Date / Time shellfish derived Allergy ALGY-Anaphy Verified 02/03/25 19:54 laxis Review of Systems 2 General: Reports: 10 or more systems reviewed and unremarkable except in HPI and below Const: Denies: fever(s) or chills Eyes: Denies: change in vision or blurry vision ENMT: Denies: throat pain or mouth pain Card: Reports: palpitations and dyspnea on exertion; Denies: chest pain, irregular heart rhythm, edema, swelling of feet/ankles, lightheadedness or syncope Resp: Reports: dyspnea (only with palpitations with exertion); Denies: non-productive cough GI: Denies: abdominal pain, nausea or vomiting : Denies: flank pain or difficulty voiding Musc: Denies: neck pain, back pain or extremity pain Skin/Breast: Denies: rash or pruritus Neuro: Denies: headache(s) or numbness in extremities Psych: Denies: anxiety or depression PFSH ED 2 PFSH: Surgical History (Updated 09/11/24 @ 09:23 by Dany Prince MD) History of cholecystectomy Hx of endoscopy Family History (Updated 09/11/24 @ 09:26 by Dany Prince MD) Grandmother Heart disease paternal Hypertension maternal Thyroid disease maternal Diabetes maternal Grandfather Heart disease maternal Mother Hypertension Thyroid disease Diabetes Father Thyroid disease Family/Other , of bone cancer No problems noted. 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 Physical Exam 2 Const: COMMON NORMALS: no acute distress, average body habitus and patient oriented x3 HENMT: COMMON NORMALS: normocephalic and atraumatic HEAD & SCALP: n ormocephalic and atraumatic Neck/C-Spine: COMMON NORMALS: full ROM, no lymphadenopathy and supple Chest: COMMONS NORMALS: normal inspection of the chest and normal palpation of entire chest wall Resp: COMMON NORMALS: normal respiratory effort, No retractions and clear to auscultation bilaterally AUSCULTATION: clear to auscultation bilaterally Cardio: COMMON NORMALS: regular rate, regular rhythm, S1 normal heart sound present, S2 normal heart sound present and Peripheral pulses 2+ throughout R ATE: regular rate and tachycardic (130 upon standing) RHYTHM: regular rhythm HEART SOUNDS: S1 normal heart sound present, S2 normal heart sound present, no click and no murmurs PERIPHERAL PULSES: Peripheral pulses 2+ throughout GI: COMMON NORMALS: Normal to inspection, nondistended, normoactive bowel sounds present, Soft to palpation and non-tender PALPATION: Yes Soft to palpation : COMMON NORMALS: Yes no CVA tenderness BLADDER/KIDNEY EXAM: Yes no CVA tenderness Back/Pelvis: COMMON NORMALS: no CVA tenderness Extremity: COMMON NORMALS: normal to inspection, full ROM and capillary refill normal Neuro: COMMON NORMALS: patient oriented x3, CN's II-XII intact bilaterally and moves all extremities Psych: COMMON NORMALS: mental status grossly normal, Normal thought process present, cooperative, normal affect and speech normal SPEECH: Yes normal speech THOUGHT PROCESS: Normal thought process present Skin: COMMON NORMALS: no rashes or lesions noted and no wounds GENERAL SKIN EXAM: no rashes or lesions noted Course 2 Reevaluation(s): Reevaluation #1: Patient is doing better after 1 L of IV fluids. Heart rate is 80s?90s. Vital Signs: Vital signs: Vital Signs Temperature 97.8 F 02/03/25 19:45 Pulse Rate 93 08/18/25 22:00 Respiratory Rate 18 02/03/25 22:00 Blood Pressure 131/78 02/03/25 22:00 Pulse Oximetry 100 02/03/25 22:00 Oxygen Delivery Me thod Room Air 02/03/25 19:45 MDM - Arrhythmia/Palpitations Medical Decision Making Discussed with patient that the findings were unfounded. Magnesium is slightly on the low side at 1.9, discussed with patient utilizing [id number] low- dose magnesium at night. She is to increase her fluid intake, and call her OB tomorrow for follow-up. Medical Records I reviewed the patient's medical records. Lab Data 02/03/25 20:01 02/03/25 20:01 Laboratory Results WBC 12.35 10^3/uL (3.29-11.43) H 02/03/25 20:01 RBC 3.89 10^6/uL (3.85-5.65) 02/03/25 20:01 Hgb 10.80 g/dL (11.27-16.99) L 02/03/25 20:01 Hct 33.4 % (36-47) L 02/03/25 20:01 MCV 85.9 fl (85-98) 02/03/25 20: MCH 27.8 pg (27-33) 02/03/25 20: MCHC 32.3 g/dL (30-55) 02/03/25 20:01 RDW 12.4 % (12.1-15.1) 02/03/25 20: Plt Count 334 10^3/cmm (157-399) 02/03/25 20: MPV 10.6 fL (7.4-10.4) H 02/03/25 20:01 Neut % (Auto) 53.4 % 02/03/25 20:01 Lymph % (Auto) 35.5 % 02/03/25 20: [place] % (Auto) 9.6 % 02/03/25 20: Eos % (Auto) 1.0 % 02/03/25 20:01 Baso % (Auto) 0.2 % 02/03/25 20:01 Neut # (Auto) 6.58 10^3/uL (1.8-7.7) 02/03/25 20:01 Lymph # (Auto) 4.4 10^3/uL (0.8-4.8) 02/03/25 20:01 [place] # (Auto) 1.2 10^3/uL (0.2-0.9) H 02/03/25 20:01 Eos # (Auto) 0.1 10^3/uL (0.0-0.8) 02/03/25 20:01 Baso # (Auto) 0.0 10^3/uL (0.0-0.1) 02/03/25 20:01 Nucleated RBC % (auto) 0 % 02/03/25 20: Nucleated RBCs # 0.0 /100WBC 02/03/25 20:01 D-Dimer 0.52 ug/mLFEU (0-0.59) 02/03/25 20:01 Sodium 134 mmol/L (136-145) L 02/03/25 20:01 Potassium 3.9 mmol/L (3.5-5.1) 02/03/25 20: Chloride 102 mmol/L (98-107) 02/03/25 20: Carbon Dioxide 23 mmol/L (22-29) 02/03/25 20:01 Anion Gap 12.9 (5-19) 02/03/25 20: BUN 5 mg/dL (6-20) L 02/03/25 20: Creatinine 0.4 mg/dL (0.5-0.9) L 02/03/25 20:01 GFR Calculation 201.5 mL/min (90-130) H 02/03/25 20: Glucose 88 mg/dL (65-115) 02/03/25 20: Calculated Osmolality 275 mOsm/kg (285-295) L 02/03/25 20: Calcium 9.5 mg/dL (8.5-10.5) 02/03/25 20: Magnesium 1.9 mg/dL (1.7-2.3) 02/03/25 20: Total Bilirubin 0.2 mg/dL (0.15-1.2) 02/03/25 20:01 AST 14 U/L (0-32) 02/03/25 20:01 ALT 10 U/L (0-33) 02/03/25 20: Alkaline Phosphatase 148 U/L (35-105) H 02/03/25 20:01 Total Protein 6.3 g/dL (6.6-8.7) L 02/03/25 20:01 Albumin 3.4 g/dL (3.5-5.2) L 02/03/25 20:01 Globulin 2.9 g/dL (1.3-4.6) 02/03/25 20:01 TSH 1.18 uIU/mL (0.27-4.20) 02/03/25 20:01 No radiology studies performed this visit Discharge Plan Discharge Patient Disposition: Home Clinical Impression: Palpitations Condition: Stable Prescriptions: No Action PNV no.140-coou-nrexz acid 28 mg iron- 800 mcg tablet 1 tab PO DAILY aspirin 81 mg tablet,delayed release (DR/EC) 81 mg PO DAILY Discharge Orders: Discharge ED (Routine); Ordered 02/03/25 Ordered By: Chelsie Maria Referrals: Dany Prince MD [Primary Care Provider, Family Practice] Discharge Diet: Usual diet and As Directed Discharge Activity: Resume usual activity Patient Instructions: Heart Palpitations (ED), Patient Portal & Trish Instructions Activity Restrictions/Additional Instructions: Call your OB doctor tomorrow to discuss your ER visit. You will need close follow-up with her. As discussed, obtain a low-dose magnesium [id number] and take at night. As discussed, increase your fluid, noncaffeinated beverages by additional 1 L a day. Increase your protein in your diet. Your hemoglobin/blood count/is slightly low from previous. This could be secondary to your aspirin. Please further discuss with your regular OB doctor. Return to ED for worsening palpitations. Print Language: Danish Coding Level of Care Code ED [employer]
[2025-02-03 20:26] LABS: Hematocrit 33.4 % (36-47); Hemoglobin 10.80 g/dL (11.27-16.99); Mean Corpuscular HGB Conc 32.3 g/dL (30-55); Mean Corpuscular Hemoglobin 27.8 pg (27-33); Mean Corpuscular Volume 85.9 fl (85-98); Nucleated Red Blood Cells % 0 %; Platelet Count 334 10^3/cmm (157-399); Red Blood Count 3.89 10^6/uL (3.85-5.65); White Blood Count 12.35 10^3/uL (3.29-11.43)
[2025-02-03 20:48] LABS: Alanine Aminotransferase 10 U/L (0-33); Albumin Level 3.4 g/dL (3.5-5.2); Alkaline Phosphatase 148 U/L (35-105); Anion Gap 12.9 (5-19); Aspartate Amino Transferase 14 U/L (0-32); Blood Urea Nitrogen 5 mg/dL (6-20); Calcium 9.5 mg/dL (8.5-10.5); Carbon Dioxide 23 mmol/L (22-29); Chloride 102 mmol/L (98-107); Creatinine Clr Calc Pharmacy 282.6103; Globulin 2.9 g/dL (1.3-4.6); Glucose 88 mg/dL (65-115); Magnesium 1.9 mg/dL (1.7-2.3); Osmolality Calculated 275 mOsm/kg (285-295); Potassium 3.9 mmol/L (3.5-5.1); Sodium 134 mmol/L (136-145); Thyroid Stimulating Hormone 1.18 uIU/mL (0.27-4.20); Total Protein 6.3 g/dL (6.6-8.7)
== END 2025-02-03 22:39 | disposition home or self-care (01) ==
PROVIDERS: Emergency Provider Physician Assistant; PCP Family Medicine
DX: O26.893 Other specified pregnancy related conditions, third trimester (principal); Z3A.35 35 weeks gestation of pregnancy; R00.2 Palpitations; Z79.82 Long term (current) use of aspirin
CPT/HCPCS: 80053; 83735; 84443; 85025; 85378; 93005; 99284; J7030